=== PATIENT | male | born 1960 | race Caucasian/White ===

== ENCOUNTER 2022-07-20 23:09 | Emergency (ER) | payer OTHER, SELFPAY ==
[2022-07-20 23:11] VITALS: BP 147/75; PULSE 94; RESP 16; TEMP 38.2; O2SAT 99; BMI 30.8
[2022-07-20 23:50] VITALS: TEMP 36.9
--- NOTE | 2022-07-20 23:55 | EX.ED.DYSGE1 ---
HPI History of Present Illness Chief Complaint: Fever Narrative Narrative: 61-year-old male presenting with nausea and a fever. He did not actually know he had a fever until he arrived to the emergency room. He states this started this morning. He took some Tylenol earlier which relieved his symptoms. He states he ate some pizza rolls this evening. He started to feel nauseous again. This is not a typical of a meal for him. Patient denies chest pain, shortness of breath. He does admit to chills and body aches. He does not have any abdominal pain. PFSH PFSH Medical History no medical history Home Medications famotidine 20 mg tablet (Pepcid) 20 mg PO BID #14 tabs 07/20/22 [Rx Last Taken Unknown] ondansetron 4 mg disintegrating tablet 4 mg PO Q8H PRN nausea and vomiting #14 tabs 07/20/22 [Rx Last Taken Unknown] Allergy/AdvReac Type Severity Reaction Status Date / Time No Known Allergies Allergy Verified 07/20/22 23:10 Social History Smoking Status: Former smoker ROS ROS ED Constitutional Constitutional ED: Reports chills and subjective Eyes Eyes: Denies change in vision ENT ENT ED: Denies rhinorrhea or sore throat Cardiovascular Cardiovascular: Denies chest pain or palpitations Respiratory/Chest Respiratory/Chest: Denies cough or dyspnea Gastrointestinal Gastrointestinal: Reports nausea; Denies abdominal pain Genitourinary Genitourinary ED: Denies dysuria or hematuria Musculoskeletal Musculoskeletal: Reports myalgias; Denies arthralgias Integumentary Denies abscess or Abrasions Neurologic Neurologic: Denies headache(s) or paresthesias Psychiatric Psychiatric: Denies anxiety or depression EXAM Physical Exam Const Vital Signs: 07/20/22 23:11 07/20/22 23:48 07/20/22 23:50 Temperature 100.8 F H 98.4 F Temperature Source Temporal Oral Pulse Rate 94 Respiratory Rate 16 Respiratory Effort Normal Respiratory Pattern Normal Blood Pressure 147/75 H Blood Pressure Mean 99 Pulse Ox 99 Oxygen Delivery Method Room Air Positive well nourished General Appearance ED: NAD; Negative for pallor HEENT Reports moist mucous membranes Eyes PERRL and EOMs intact bilaterally Neck no lymphadenopathy Chest Wall inspection of chest normal and palpation of chest normal Resp normal respiratory effort and clear to auscultation bilaterally Auscultation: Negative for rales, rhonchi or wheezes Cardio regular rate and regular rhythm GI normal to inspection, nondistended, normoactive bowel sounds Extremity normal to inspection Neuro oriented x3 and CN's II-XII intact bilaterally Psych mental status grossly normal Skin no rashes or lesions noted and no wounds General Skin Exam: Negative for jaundice or pallor MDM MDM MDM Narrative Medical decision making narrative: Patient presenting with nausea. He has not been vomiting. He states he started feeling unwell earlier today. He did not know he had a fever. On arrival his temperature is 100.8 ?F. He does admit to body aches and chills. He does not have a cough, shortness of breath. No abdominal pain. Offered to test patient for COVID or influenza he declines. Will be treated symptomatically with Zofran and Tylenol. He will be discharged home with a prescription for Pepcid and Zofran and will alternate Tylenol and ibuprofen for pain. He is counseled drink plenty of fluids. Return precautions discussed. Impression: 1. Viral syndrome 2. Febrile illness 3. Nausea Lab Data Attestation: I reviewed the patient's lab results. Discharge Plan Triage Chief Complaint: Fever ED Provider: Anselmo London Dx/Rx/DC Orders Instructions: ED Viral Syndrome (Adult) Prescriptions: New ondansetron 4 mg tablet,disintegrating 4 mg PO Q8H PRN (Reason: nausea and vomiting) Qty: 14 0RF famotidine [Pepcid] 20 mg tablet 20 mg PO BID Qty: 14 0RF Primary Care Provider: NOT,DEFINED Referrals: NOT,DEFINED [Primary Care Provider] - Disposition Disposition: Home, Self Care
[2022-07-20] MEDS: Ondansetron ODT 4 MG Tablet PO (23:57)
[2022-07-20] MEDS: Acetaminophen 500 MG Tablet 1000 MG PO (23:57)
== END 2022-07-21 00:41 | disposition home or self-care (01) ==
LOC: ED 07-21 00:22
PROVIDERS: Emergency Provider Student in an Organized Health Care Education/Training Program; Visit Provider Student in an Organized Health Care Education/Training Program
DX: B34.9 Viral infection, unspecified (principal); R50.9 Fever, unspecified; R11.0 Nausea; Z87.891 Personal history of nicotine dependence
CPT/HCPCS: 99283

== ENCOUNTER 2022-07-23 12:26 | Emergency (ER) | payer OTHER, SELFPAY ==
[2022-07-23 12:26] VITALS: BP 167/79; PULSE 95; RESP 16; TEMP 36.3; O2SAT 99; BMI 30.8
--- NOTE | 2022-07-23 12:58 | ED.VIS.LOWEX ---
HPI <LISBET Colon - Last Filed: 07/23/22 20:33> History of Present Illness Chief Complaint: Wound Narrative Narrative: Patient presents with an erythemic, edematous, painful, and purulent wound on his R big toe. The redness and swelling extends over his entire R foot. Patient states he gets chronic big toe calluses on both feet and clipped the R callus off about a month ago. 2 days ago he noticed the area became red and swollen. Patient denies fever and chills and a history of diabetes mellitus. However, he has not been to his PCP in quite some time. Patient did present to the emergency department on 07/20/2022 for a fever and nausea. PFSH <LISBET Colon - Last Filed: 07/23/22 20:33> PFSH Medical History no medical history no medical history Home Medications famotidine 20 mg tablet (Pepcid) 20 mg PO BID #14 tabs 07/20/22 [Rx Last Taken Unknown] ondansetron 4 mg disintegrating tablet 4 mg PO Q8H PRN nausea and vomiting #14 tabs 07/20/22 [Rx Last Taken Unknown] cephalexin 500 mg capsule 500 mg PO Q6 #40 caps 07/23/22 [Rx Last Taken Unknown] sulfamethoxazole 400 mg-trimethoprim 80 mg tablet (Bactrim) 1 tab PO BID cellulitis 7 days #14 tabs 07/23/22 [Rx Last Taken Unknown] Allergy/AdvReac Type Severity Reaction Status Date / Time No Known Allergies Allergy Verified 07/23/22 12:28 Social History Smoking Status: Former smoker ROS <LISBET Colon - Last Filed: 07/23/22 20:33> ROS ED Constitutional Constitutional ED: Denies chills, fever(s) or sweats Eyes Eyes: Denies change in vision ENT ENT ED: Denies rhinorrhea or sore throat Cardiovascular Cardiovascular: Denies chest pain Respiratory/Chest Respiratory/Chest: Denies cough, dyspnea or dyspnea on exertion Gastrointestinal Gastrointestinal: Denies abdominal pain, constipation, diarrhea, nausea or vomiting Genitourinary Genitourinary ED: Denies dysuria Musculoskeletal Musculoskeletal: Denies arthralgias Integumentary Reports erythema and wounds EXAM <LISBET Colon - Last Filed: 07/23/22 20:33> Physical Exam Const Vital Signs: 07/23/22 12:26 Temperature 97.4 F L Temperature Source Temporal Pulse Rate 95 Respiratory Rate 16 Blood Pressure 167/79 H Blood Pressure Mean 108 Pulse Ox 99 Oxygen Delivery Method Room Air <Dr. Sadia Limon MD - Last Filed: 07/23/22 14:49> Physical Exam Const Vital Signs: 07/23/22 12:26 Temperature 97.4 F L Temperature Source Temporal Pulse Rate 95 Respiratory Rate 16 Blood Pressure 167/79 H Blood Pressure Mean 108 Pulse Ox 99 Oxygen Delivery Method Room Air MDM <LISBET Colon - Last Filed: 07/23/22 20:33> MDM MDM Narrative Medical decision making narrative: To rule out osteomyelitis in his right toe I ordered blood cultures, x-ray of the right foot, lactic acid, CBC, CMP, and culture of the wound. The x-ray did not show any osteomyelitis. We are waiting on blood cultures. His CMP did show a glucose of 355. We are referring him to an supervisor customer records division, and because he has no PCP we are referring him to one as well. He will be given Keflex and Bactrim to take at home. He has been instructed on how to keep wound clean and dry. He is stable and able to discharge home. He has been instructed to return if he has any new or worsening symptoms. Lab Data Attestation: I reviewed the patient's lab results. Labs: Laboratory Results - last 24 hr 07/23/22 07/23/22 07/23/22 13:15 13:15 13:15 WBC 10.4 RBC 4.73 Hgb 14.5 Hct 43.3 MCV 91.5 MCH 30.7 MCHC 33.5 RDW Std Deviation 42.2 RDW Coeff of Emmanuel 12.5 Plt Count 177 MPV 9.8 Immature Gran % (Auto) 0.600 Neut % (Auto) 80.7 H Lymph % (Auto) 9.5 L Chilton % (Auto) 8.4 Eos % (Auto) 0.5 Baso % (Auto) 0.3 Absolute Neuts (auto) 8.4 H Absolute Lymphs (auto) 0.99 Nucleated RBC % 0 Sodium 133 L Potassium 4.1 Chloride 99 Carbon Dioxide 28.0 Anion Gap 6 BUN 18 Creatinine 1.00 Estim Creat Clear Calc 79.54 Est GFR (MDRD) Af Amer 98 Est GFR (MDRD) Non-Af 81 BUN/Creatinine Ratio 18.0 Glucose 355 H Lactic Acid 1.4 Calcium 8.8 Total Bilirubin 0.60 AST 37 ALT 61 Alkaline Phosphatase 106 Total Protein 7.4 Albumin 2.9 L Globulin 4.5 H Albumin/Globulin Ratio 0.6 L Radiography Diagnostic Testing: Clinical Impression(s) from Imaging Studies Foot X-Ray 07/23/22 13:20 IMPRESSION: Soft tissue swelling overlying the great toe. No evidence of bony destruction. Electronically Signed: Lb Easley MD at 13:55 EDT , <Dr. Sadia Limon MD - Last Filed: 07/23/22 14:49> [facility] Lab Data Labs: Laboratory Results - last 24 hr 07/23/22 07/23/22 07/23/22 13:15 13:15 13:15 WBC 10.4 RBC 4.73 Hgb 14.5 Hct 43.3 MCV 91.5 MCH 30.7 MCHC 33.5 RDW Std Deviation 42.2 RDW Coeff of Emmanuel 12.5 Plt Count 177 MPV 9.8 Immature Gran % (Auto) 0.600 Neut % (Auto) 80.7 H Lymph % (Auto) 9.5 L Chilton % (Auto) 8.4 Eos % (Auto) 0.5 Baso % (Auto) 0.3 Absolute Neuts (auto) 8.4 H Absolute Lymphs (auto) 0.99 Nucleated RBC % 0 Sodium 133 L Potassium 4.1 Chloride 99 Carbon Dioxide 28.0 Anion Gap 6 BUN 18 Creatinine 1.00 Estim Creat Clear Calc 79.54 Est GFR (MDRD) Af Amer 98 Est GFR (MDRD) Non-Af 81 BUN/Creatinine Ratio 18.0 Glucose 355 H Lactic Acid 1.4 Calcium 8.8 Total Bilirubin 0.60 AST 37 ALT 61 Alkaline Phosphatase 106 Total Protein 7.4 Albumin 2.9 L Globulin 4.5 H Albumin/Globulin Ratio 0.6 L Radiography Diagnostic Testing: Clinical Impression(s) from Imaging Studies Foot X-Ray 07/23/22 13:20 IMPRESSION: Soft tissue swelling overlying the great toe. No evidence of bony destruction. Electronically Signed: Lb Easley MD at 13:55 EDT , Treatment and Re-Evaluation Narrative: Patient seen and evaluated with JEFFRY. I personally interviewed and examined the patient. I was involved in all aspects of patient's orders, interpretation of results, and treatment. Patient presents with redness and swelling to the right great toe. He reports getting frequent calluses to his feet that he will trim. He states over the past 2 days his right toe has become more swollen and red. He denies having fever or chills, although was noted to be seen in the emergency room 3 days ago with low-grade fever and a stomach bug. He does not follow with a primary care physician regularly. Patient sitting upright in bed no acute distress. He is nontoxic-appearing. Head and neck examination unremarkable. Heart is regular rate and rhythm. Lung sounds are clear. Abdomen is soft and nontender. Right lower extremity examination reveals edema and erythema to the right great toe. He has erythema onto the distal lower leg, however this appears more consistent with chronic venous skin changes. There is mild wound drainage over the great toe. CBC was normal white count. 80% neutrophils are noted. Chemistry studies reveal slight hyponatremia with a sodium of 131. His glucose is 355. Lactic acid is normal at 1.4. Right foot x-ray per my interpretation reveals no evidence of bony destruction. Radiology interpretation is reviewed and agrees. Given this, patient will be treated with Bactrim and Keflex and referred to podiatry for close follow-up. I also suspect that he is an untreated diabetic. He is referred to [facility] on no doc list to establish primary care. Return instructions are provided. Discharge Plan Triage Chief Complaint: Wound ED Midlevel Provider: Jenifer Shaikh ED Provider: Sadia Limon Dx/Rx/DC Orders Clinical Impression: Wound cellulitis Instructions: Diabetic Foot Press Injury Dc Prescriptions: New cephalexin 500 mg capsule 500 mg PO Q6 Qty: 40 0RF sulfamethoxazole-trimethoprim [Bactrim] 400-80 mg tablet 1 tab PO BID 7 Days Qty: 14 0RF No Action ondansetron 4 mg tablet,disintegrating 4 mg PO Q8H PRN (Reason: nausea and vomiting) Qty: 14 0RF famotidine [Pepcid] 20 mg tablet 20 mg PO BID Qty: 14 0RF Primary Care Provider: Care Physician,No Primary Referrals: Faiza Warren MD [Med Staff - Active Staff] - As soon as possible Adrian Parsons DPM [Med Staff - Active Staff] - As soon as possible Care Physician,No Primary [Primary Care Provider] - Activity Restrictions/Additional Instructions: Patient has been encouraged to follow-up with PCP we have set him up with along with the supervisor customer records division. He has been instructed to keep wound clean and dry. He has been instructed to return if he notices any new or worsening symptoms. Disposition Disposition: Home, Self Care
--- NOTE | 2022-07-23 13:20 | RAD_ITS ---
STUDY: X-RAY - RIGHT FOOT CLINICAL: Male, 61 years old. Wound R big toe TECHNIQUE: 3 view(s) of the foot. COMPARISON: None. FINDINGS: Normal talus, calcaneus, and tarsal bones. Normal visualized subtalar, talonavicular, calcaneocuboid, tarsal and tarsometatarsal articulations. Normal metatarsi. Normal metatarsophalangeal joint of the great toe. Normal tibial and fibular sesamoid bones. Normal interphalangeal joint of the great toe. Normal phalanges of the great toe. Normal second through fifth metatarsophalangeal joints. Normal interphalangeal joints and phalanges of the lesser toes. Soft tissue swelling overlying the great toe. RAD/Foot min 3 Views IMPRESSION: Soft tissue swelling overlying the great toe. No evidence of bony destruction. Electronically Signed: Lb Easley MD at 13:55 EDT ,
[2022-07-23 13:36] LABS: Absolute Lymphocyte Count 0.99 X10^3/uL (0.83-4.51); Absolute Neutrophil Count 8.4 X10^3/uL (2.0-7.7); Basophil# 0.03 X10^3/uL; Basophil% 0.3 % (0-1); Eosinophil# 0.05 X10^3/uL; Eosinophils% 0.5 % (0-5); Hematocrit 43.3 % (40-54); Hemoglobin 14.5 g/dL (13.0-16.5); Lymphocyte # 0.99 X10^3/ul (0.83-4.51); Lymphocyte % 9.5 % (19-41); Mean Corp Hgb Conc 33.5 g/dL (32-36); Mean Corpuscular Hgb 30.7 pg (27.0-32.0); Mean Corpuscular Volume 91.5 fL (80-94); Mean Platelet Vol. 9.8 fl (6.2-12.0); Monocyte# 0.88 X10^3/uL; Monocyte% 8.4 % (0-10); NRBC Flagged by Analyzer 0 % (0-5); Neutrophil # 8.41 X10^3/uL (2.7-7.7); Neutrophil % 80.7 % (47-70); Platelet Count 177 K/mm3 (150-450); RBC Distribution Width CV 12.5 % (11.6-14.6); RBC Distribution Width SD 42.2 fl (35.1-43.9); Red Blood Count 4.73 M/mm3 (4.6-6.2); White Blood Count 10.4 K/mm3 (4.4-11.0)
[2022-07-23 13:52] LABS: ALB/GLOB Ratio 0.6 RATIO (0.9-2.4); AST(SGOT) 37 U/L (15-37); Alanine Aminotransfer ALT/SGPT 61 U/L (16-61); Albumin, Serum 2.9 g/dL (3.2-5.0); Alkaline Phosphatase 106 U/L (45-117); Anion Gap 6 (5-15); BUN 18 mg/dL (7-18); Calcium,Total 8.8 mg/dL (8.5-10.1); Chloride 99 mmol/L (98-107); EST Glomerular Filtration Rate 81 mL/min (>60); Est Glom Filt Rate - Afr Amer 98 mL/min (>60); Estimated Creatinine Clearance 79.54 ml/min; Globulin 4.5 g/dL (2.2-4.2); Glucose 355 mg/dL (74-106); Potassium 4.1 mmol/L (3.5-5.1); Protein, Total 7.4 g/dL (6.4-8.2); Sodium Level 133 mmol/L (136-145)
[2022-07-23 14:09] LABS: Lactic Acid 1.4 mmol/L (0.4-1.9)
== END 2022-07-23 14:49 | disposition home or self-care (01) ==
PROVIDERS: Physician Assistant; Emergency Provider Emergency Medicine; Visit Provider Emergency Medicine
DX: L03.031 Cellulitis of right toe (principal); Z87.891 Personal history of nicotine dependence
CPT/HCPCS: 73630; 80053; 83605; 85025; 87040; 87070; 87077; 87186; 87205; 99283; A4216

== ENCOUNTER 2022-07-27 16:20 | Inpatient (IN) | payer OTHER, SELFPAY ==
[2022-07-27 16:29] VITALS: BMI 28.2
[2022-07-27 16:47] VITALS: BP 148/73; PULSE 82; RESP 18; TEMP 36.6; O2SAT 99
[2022-07-27] MEDS: 0.9% Saline Lock 10 ML Syringe IV (17:12)
--- NOTE | 2022-07-27 17:18 | PCM.HP.STD ---
HPI - General General Date of Admission: 07/27/22 HPI Narrative ALLEY ZHONG, is a 61 M who presented to my clinic with new onset right foot infection in setting of undiagnosed diabetes poorly controlled. Patient had recently been seen in the emergency department on 07/24/2022. Patient noted increased swelling redness to his right big toe at that time with some fever chills and nausea. Patient was evaluated emergency department and discharged on oral antibiotics. Patient presented to our office today with worsening infection to his right big toe. Increased drainage to site. Increased pain. Increased malodor. Patient was noted to have blood sugar greater than 350 in the emergency room, patient has no medical treatment for diabetes at this time and does not routinely follow with a medical doctor. Patient was referred to primary care physician as an outpatient, but per patient they were unable to get him in. Patient notes that this issue started because he had a callus to the site which she had picked at and attempted to remove. No other complaints. [facility]LY [facility] Medical History H/O pneumothorax Home Medications ondansetron 4 mg disintegrating tablet 4 mg PO Q8H PRN nausea and vomiting #14 tabs 07/20/22 [Rx Last Taken Unknown] cephalexin 500 mg capsule 500 mg PO Q6 #40 caps 07/23/22 [Rx Last Taken Unknown] sulfamethoxazole 400 mg-trimethoprim 80 mg tablet (Bactrim) 1 tab PO BID cellulitis 7 days #14 tabs 07/23/22 [Rx Last Taken Unknown] Allergy/AdvReac Type Severity Reaction Status Date / Time No Known Allergies Allergy Verified 07/23/22 12:28 Social History Smoking Status: Former smoker ROS Constitutional Constitutional: Reports chills and lethargy; Denies difficulty sleeping Eyes Eyes: Denies acute decrease in peripheral vision, change in vision or double vision ENT HEENT: Denies bleeding gums, change in voice or epistaxis Cardiovascular Cardiovascular: Denies abdominal edema, chest pain at rest or dyspnea Respiratory/Chest Respiratory/Chest: Denies change in phlegm color, dyspnea or inability to speak Gastrointestinal Gastrointestinal: Denies abdominal pain, chewing difficulty or diarrhea Genitourinary Genitourinary: Denies anuria, burning urination or difficulty with ejaculations Musculoskeletal Musculoskeletal: Denies back pain, deformity or limited range of motion Vital Signs Vital Signs Vital Signs: 07/27/22 16:47 Temperature 97.9 F Temperature Source Oral Pulse Rate 82 Respiratory Rate 18 Blood Pressure 148/73 H Blood Pressure Mean 98 Blood Pressure Source Monitor Blood Pressure Position Semi-Fowlers Blood Pressure Location Left Arm Pulse Ox 99 Oxygen Delivery Method Room Air Weight Weight: 86.7 kg Body Mass Index (BMI) 28.2 Physical Exam Narrative Patient alert oriented person place time. Vascular: Dorsalis pedis posterior tibial pulses palpable 2 out of 4 to bilateral lower extremity. Digital hair growth noted. Diffuse erythema warmth and edema to the right big toe extending into the anterior ankle. Neurologic: Light touch protective sensation diminished bilateral feet. Dermatologic: Diffuse necrotic ulcer noted to the right distal medial hallucal IPJ extending into the dorsal hallux. Predebridement this wound was a thick purulent bolus. Postdebridement the wound demonstrated a full-thickness ulceration that extended down to the level of the tendon specifically extensor hallucis longus tendon. Upon debridement there is noted to be a residual necrotic base with purulent, black drainage coming from the site. There is no to be fluctuance along the dorsal hallux extending along the extensor hallucis longus tendon toward the anterior ankle. There is focal increase in warmth as well as redness and pain to the site. Musculoskeletal: Hallux limitus deformity noted to the right lower extremity. Muscular strength full to bilateral lower extremity compartments. No other issues per Assessment & Plan Assessment/Plan (1) Non-pressure chronic ulcer of other part of right foot with necrosis of muscle: PLAN: Exam performed. Radiographs taken in the office, negative for bony erosion or periostitis suggestive of osteomyelitis. Due to depth of wound severity of the infection I have ordered an MRI. Patient will likely require operative decompression of deep abscess. The wound was excisionally debrided down to including the level of muscle and the office today after obtaining oral consent using a combination of pickups and a #15 blade. All nonviable tissue was removed. base demonstrated residual necrosis. Significant seropurulent drainage noted. Hemostasis obtained with light compression. No anesthesia due to neuropathy. Predebridement the wound was a purulent bolus postdebridement there was a full-thickness wound measuring 1.5 x 1.5 x 1.0 cm. Patient tolerated procedure well. IV vancomycin and Zosyn ordered per Hospitalist consulted for diabetes management. Infectious disease ordered. L 4361 Cam walking boot dispensed patient in clinic, patient remain heel weightbearing to the right lower extremity. We will plan for surgical management sometime this week pending MRI completion. Dietitian consulted for nutritional discussion regarding new onset diabetes We will follow patient closely. (2) Type 2 diabetes mellitus with diabetic polyneuropathy: (3) Abscess of right foot:
[2022-07-27 17:51] LABS: Hematocrit 41.5 % (40-54); Hemoglobin 14.3 g/dL (13.0-16.5); Mean Corp Hgb Conc 34.5 g/dL (32-36); Mean Corpuscular Hgb 30.5 pg (27.0-32.0); Mean Corpuscular Volume 88.5 fL (80-94); Mean Platelet Vol. 9.4 fl (6.2-12.0); POSITIVE COUNT YES; POSITIVE MORPHOLOGY YES; Platelet Count 366 K/mm3 (150-450); RBC Distribution Width CV 12.4 % (11.6-14.6); RBC Distribution Width SD 39.7 fl (35.1-43.9); Red Blood Count 4.69 M/mm3 (4.6-6.2); White Blood Count 16.1 K/mm3 (4.4-11.0)
[2022-07-27 17:51] LABS: Bedside Glucose 257 mg/dL (74-106)
--- NOTE | 2022-07-27 18:03 | PCM.CONS.GEN ---
Assessment & Plan Assessment/Plan (1) Type 2 diabetes mellitus with diabetic polyneuropathy: PLAN: Previously undiagnosed but it likely has been a chronic issue for some time. Agree with checking an A1c. Plan: Sliding scale insulin Start Lantus 10 units nightly tonight. It is unclear, at this time, if he will require long-term insulin upon discharge, but I suspect he may. Patient and his significant other have been made aware of this. Nutrition consult for diabetes recommendations. Patient will require glucometer with testing strips and lancets upon discharge whether or not he is on insulin upon discharge. Patient, during my encounter, did not seem motivated to get better and understands the importance of follow-up with a primary care doctor. Patient segment other had a lot of questions about potential interactions with insulin and his other medications. Explained to she and the patient that the likelihood of any potential interaction with his medications and insulin is very low. (2) Abscess of right foot: PLAN: Status postdebridement On vancomycin and Zosyn MRI has been ordered Infectious disease has been consulted Follow-up cultures PLAN: Plan VTE prophylaxis with subcu heparin Thank you for the consult. The hospitalist service will continue to follow along during this patient's hospitalization. HPI Consult Data Date of Consult: 07/27/22 HPI Narrative Reason for Consultation: Consult requested by Dr. Cole for DM mgmt. HPI Narrative: ALLEY ZHONG, is a 61 M who presents with right foot infection at the podiatry office today. I did see in the emergency room on the fifth for the same but had been on antibiotics but noticed increased swelling and redness to his right great toe with associated chills and nausea. Patient was started to have drainage and increased pain small. Patient was noted to have a blood sugar greater than 350 in the emergency room the patient had no prior history of diabetes, though, patient does not have a primary care physician. Patient had an x-ray at the office that did not show any bony erosions or periostitis. Patient did have debridement down to the level of the muscle and nonviable tissue was removed. Significant seropurulent drainage was noted. Patient did not require any anesthesia due to his neuropathy. Patient blood sugars have continued to be elevated for which the hospital service was consulted for previously undiagnosed diabetes. FORMERLY [facility] Medical History (Updated 07/27/22 @ 18:[address] Uli Jopperi, DO) H/O pneumothorax Type 2 diabetes mellitus with diabetic polyneuropathy Home Medications ondansetron 4 mg disintegrating tablet 4 mg PO Q8H PRN nausea and vomiting #14 tabs 07/20/22 [Rx Last Taken Unknown] cephalexin 500 mg capsule 500 mg PO Q6 #40 caps 07/23/22 [Rx Last Taken Unknown] sulfamethoxazole 400 mg-trimethoprim 80 mg tablet (Bactrim) 1 tab PO BID cellulitis 7 days #14 tabs 07/23/22 [Rx Last Taken Unknown] Allergy/AdvReac Type Severity Reaction Status Date / Time No Known Allergies Allergy Verified 07/23/22 12:28 Family History (Updated 07/27/22 @ 18:[address] Uli Malik, ) Father Diabetes Social History (Updated 07/27/22 @ 18:[address] Uli Malik, ) Smoking Status: Former smoker alcohol intake: former substance use type: does not use ROS ROS Narrative Neuropathy in his feet. Chills. All review of systems were negative except as mentioned above in the history of present illness and the other review of systems. Physical Exam Const alert and no apparent distress General Appearance: cooperative HEENT normocephalic Neck no lymphadenopathy Neck Narrative: No thyromegaly Resp normal respiratory effort, no retractions, no use of accessory muscles and clear to auscultation bilaterally Cardio regular rate, regular rhythm, S1 normal heart sound and S2 normal heart sound GI normal to inspection, nondistended, normoactive bowel sounds, soft to palpation, non-tender, non-distended and hepatosplenomegaly Extremity Extremity Narrative: Right foot and ankle bandaged, did not remove. Neuro Sensorium / Orientation: awake and alert Lab / Micro Data Result Diagrams: 07/27/22 15:35 07/27/22 15:35 Labs: Laboratory Results - last 24 hr 07/27/22 17:33: POC Glucose 257 H Charges/Coding Visit Charges Inpatient E&M: 24193 Init Hosp L2
[2022-07-27 18:15] LABS: Differential Indicated MANUAL DIFF
[2022-07-27 18:20] LABS: Erythrocyte Sedimentation Rate 87 mm/hr (0-20)
[2022-07-27 18:29] LABS: ALB/GLOB Ratio 0.5 RATIO (0.9-2.4); AST(SGOT) 13 U/L (15-37); Alanine Aminotransfer ALT/SGPT 39 U/L (16-61); Albumin, Serum 2.8 g/dL (3.2-5.0); Alkaline Phosphatase 142 U/L (45-117); Anion Gap 8 (5-15); BUN 14 mg/dL (7-18); BUN/Creat Ratio 15.3 RATIO (10-20); Calcium,Total 9.4 mg/dL (8.5-10.1); Chloride 99 mmol/L (98-107); Creatinine, Serum 0.91 mg/dL (0.70-1.30); EST Glomerular Filtration Rate 90 mL/min (>60); Est Glom Filt Rate - Afr Amer 109 mL/min (>60); Globulin 5.4 g/dL (2.2-4.2); Glucose 293 mg/dL (74-106); Potassium 4.8 mmol/L (3.5-5.1); Protein, Total 8.2 g/dL (6.4-8.2); Sodium Level 134 mmol/L (136-145)
--- NOTE | 2022-07-27 18:38 | PHA.PHARE_ITS ---
Consult Pharmacy has been consulted to manage selected antiobiotic: Vancomycin Type of Consult: New start Suspected Infection: Skin/Soft tissue Labs: Sodium 134 mmol/L (136-145) L 07/27/22 15:35 Potassium 4.8 mmol/L (3.5-5.1) 07/27/22 15:35 Chloride 99 mmol/L (98-107) 07/27/22 15:35 Carbon Dioxide 27.0 mmol/L (21.0-32.0) 07/27/22 15:35 Anion Gap 8 (5-15) 07/27/22 15:35 BUN 14 mg/dL (7-18) 07/27/22 15:35 Creatinine 0.91 mg/dL (0.70-1.30) 07/27/22 15:35 Est GFR (MDRD) Af Amer 109 mL/min (>60) 07/27/22 15:35 Est GFR (MDRD) Non-Af 90 mL/min (>60) 07/27/22 15:35 BUN/Creatinine Ratio 15.3 RATIO (10-20) 07/27/22 15:35 Glucose 293 mg/dL (74-106) H 07/27/22 15:35 Weight used for dosin.7 kg Estimated Creatinine Clearance: 87ML/MIN Goal Trough: 15-20 mcg/mL Pharmacy Plan for Drug Dosing: Give initial standard (15mg/kg) dose of 1250mg IV x1, then continue with 1500mg IV q12h per [facility] dosing protocol. Will order a trough to be drawn before the 4th total dose. Pharmacy Service will continue to monitor and adjust dosing as required. Follow-Up Labs: Trough Vancomycin Labs to be done on [date and time ordered]: 07/29/22 05:30
[2022-07-27 18:48] LABS: Hemoglobin A1c 11.1 % (3.8-5.6)
[2022-07-27 19:07] LABS: Eosinophil 1 % (0-5); Lymphocyte 9 % (19-41); Metamyelocyte 2 % (0-1); Monocyte 14 % (0-10); Myelocyte 1 % (0-0); Neutrophil-Band 3 % (0-5); Neutrophil-Segmented 70 % (47-70); Total Cells Counted 100 (MANUAL DIFF)
[2022-07-27 19:09] LABS: Absolute Neutrophil Count 11.8 X10^3/uL (2.0-7.7)
[2022-07-27 19:10] LABS: Absolute Lymphocyte Count 1.45 X10^3/uL (0.83-4.51)
[2022-07-27 19:11] LABS: Platelet Estimate ADEQUATE (ADEQ)
[2022-07-27 19:12] LABS: Anisocytosis RARE; Macrocytosis RARE; Red Cell Morphology N CHROM NORMAL (NORM C&C)
[2022-07-27 19:32] VITALS: BP 162/78; PULSE 89; RESP 18; TEMP 36.9; O2SAT 95
[2022-07-27] MEDS: Acetaminophen 500 MG Tablet PO (19:47)
[2022-07-27] MEDS: Heparin Injection (Vial) 5,000 UNIT/ML VIAL 5000 UNIT SC (21:34)
[2022-07-27] MEDS: Insulin Glargine-YFGN 100 UNIT/ML Pen 10 UNIT SC (21:35)
[2022-07-27 22:00] LABS: Bedside Glucose 325 mg/dL (74-106)
[2022-07-28] VITALS (9 sets, daily range): BP systolic 144–169; BP diastolic 65–84; PULSE 78–91; RESP 16–18; TEMP 36.5–37.1; O2SAT 95–99
[2022-07-28] MEDS: Acetaminophen 500 MG Tablet PO ×3 (03:08→17:28)
[2022-07-28] MEDS: Heparin Injection (Vial) 5,000 UNIT/ML VIAL 5000 UNIT SC ×3 (05:40→22:15)
[2022-07-28] MEDS: Insulin Lispro 100 UNIT/ML INSULN.PEN SC ×3 (06:22→17:23)
[2022-07-28 06:45] LABS: Bedside Glucose 213 mg/dL (74-106)
[2022-07-28] MEDS: oxyCODONE 5 MG Tablet PO ×2 (07:25→13:37)
[2022-07-28] MEDS: 0.9% Saline Lock 10 ML Syringe IV ×2 (09:30→12:36)
--- NOTE | 2022-07-28 09:30 | RAD_ITS ---
STUDY: X-RAY - ORBITS REASON FOR EXAM: Male, 61 years old. HX METAL TO EYE,PRE MRI TECHNIQUE: 2 view(s) of the orbits were obtained. COMPARISON: None. FINDINGS: Normal bilateral orbits without a metallic orbital foreign body. Normal visualized facial bones. Mucosal thickening along the lateral aspect of the left maxillary sinus. The soft tissue structures are unremarkable. RAD/Orbits for Foreign Body IMPRESSION: No demonstrated metallic orbital foreign body. The patient is cleared for an MRI examination. Electronically Signed: Lb Easley MD at 9:49 EST ,
--- NOTE | 2022-07-28 09:58 | MRI_ITS ---
STUDY: MRI RIGHT FOREFOOT WITHOUT CONTRAST REASON FOR EXAM: Male, 61 years old. Right foot infection. TECHNIQUE: Standardized fat and water weighted pulse sequences were obtained in all 3 orthogonal planes. COMPARISON: X-rays of the right foot dated July 23, 2022. FINDINGS: Moderate arthrosis of the MTP and IP joints with hammertoe deformities. Normal first through fourth intermetatarsal spaces. Normal flexor and extensor tendons of the second through fifth toes. Normal visualized metatarsi. Normal intrinsic muscles of the forefoot. Superficial soft tissue ulceration adjacent to the proximal aspect of the proximal phalanx of the fifth digit extending approximately 5 mm into the soft tissues adjacent to the proximal phalanx of the first metatarsal. Extension of the high signal intensity on the plantar surface of the foot beneath the first flexor tendon. Extension of the high signal intensity dorsally to within approximately 3 mm of the cortex of the proximal and medial aspect of the first proximal phalanx. These areas of extension may represent small soft tissue abscesses (coronal series 7 images 13-18, axial series 6 images 15-24). MRI/Lower Ext/No Jt/w/o IMPRESSION: Moderate arthrosis of the MTP and IP joints with hammertoe deformities. Superficial soft tissue ulceration with extensions to the dorsal and plantar surface of the soft tissues medial to the proximal phalanx of the first toe. Probable small superficial abscess disease dorsally and on the plantar surface of the foot as described. No bone erosion or high signal intensity within any of the visualized osseous structures to suggest osteomyelitis. Electronically Signed: Skyler Boyce, at 11:03 EST ,
--- NOTE | 2022-07-28 12:38 | PCM.PROGNOTE ---
Subjective Subjective 61-year-old male seen bedside today with abscess right foot. Denies constitutional's. Pain well controlled. No other complaints. Objective Data Objective Data Vital Signs: Vital Signs Temp Pulse Resp BP Pulse Ox O2 Del Method 98.2 F 89 16 155/77 H 97 Room Air 07/28/22 09:15 07/28/22 09:15 07/28/22 09:15 07/28/22 09:15 07/28/22 09:15 07/28/22 09:18 Oxygen Delivery Method Room Air Weight: 86.7 kg Body Mass Index (BMI) 28.2 Intake & Output: Intake and Output for Last 24 Hours 07/26/22 07/27/22 07/28/22 23:59 23:59 23:59 Intake Total 425 / 1225 2856.5 / 2856.5 Output Total 5 / 2075 Balance 425 / 400 781.5 / 781.5 Lab / Micro Data Result Diagrams: 07/27/22 15:35 07/27/22 15:35 Labs: Laboratory Results - last 24 hr 07/27/22 15:35: ESR 87 H 07/27/22 15:35: C-React Prot Ext Range 91.20 H 07/27/22 15:35: Hemoglobin A1c 11.1 H 07/27/22 15:35: WBC 16.1 H, RBC 4.69, Hgb 14.3, Hct 41.5, MCV 88.5, MCH 30.5, MCHC 34.5, RDW Std Deviation 39.7, RDW Coeff of Emmanuel 12.4, Plt Count 366, MPV 9.4, Neut % (Auto) Not Reportable, Absolute Neuts (auto) 11.8 H, Absolute Lymphs (auto) 1.45, Total Counted 100, Neutrophils % (Manual) 70, Band Neutrophils % 3, Lymphocytes % (Manual) 9 L, Monocytes % (Manual) 14 H, Eosinophils % (Manual) 1, Metamyelocytes % 2 H, Myelocytes % 1 H, Diff Path Review May foll, Platelet Estimate ADEQUATE, RBC Morphology N CHROM, Anisocytosis RARE, Macrocytosis RARE 07/27/22 15:35: Sodium 134 L, Potassium 4.8, Chloride 99, Carbon Dioxide 27.0, Anion Gap 8, BUN 14, Creatinine 0.91, Estim Creat Clear Calc 87.40, Est GFR (MDRD) Af Amer 109, Est GFR (MDRD) Non-Af 90, BUN/Creatinine Ratio 15.3, Glucose 293 H, Calcium 9.4, Total Bilirubin 0.50, AST 13 L, ALT 39, Alkaline Phosphatase 142 H, Total Protein 8.2, Albumin 2.8 L, Globulin 5.4 H, Albumin/Globulin Ratio 0.5 L 07/27/22 17:33: POC Glucose 257 H 07/27/22 21:32: POC Glucose 325 H 07/28/22 06:19: POC Glucose 213 H Micro: Microbiology 07/27/22 15:30 Wound - Right Foot Gram Stain - Final 07/27/22 15:30 Wound - Right Foot Wound Culture - Preliminary Alpha hemolytic organism Radiography Diagnostic Testing: Radiology Impression Orbit X-Ray 07/28/22 09:30 IMPRESSION: No demonstrated metallic orbital foreign body. The patient is cleared for an MRI examination. Electronically Signed: Lb Easley MD at 9:49 EST , Lower Extremity MRI 07/28/22 09:58 IMPRESSION: Moderate arthrosis of the MTP and IP joints with hammertoe deformities. Superficial soft tissue ulceration with extensions to the dorsal and plantar surface of the soft tissues medial to the proximal phalanx of the first toe. Probable small superficial abscess disease dorsally and on the plantar surface of the foot as described. No bone erosion or high signal intensity within any of the visualized osseous structures to suggest osteomyelitis. Electronically Signed: Skyler Boyce, at 11:03 EST , Physical Exam Narrative Patient alert oriented person place time. Vascular: Dorsalis pedis posterior tibial pulses palpable 2 out of 4 to bilateral lower extremity. Digital hair growth noted. Diffuse erythema warmth and edema to the right big toe extending into the anterior ankle. Neurologic: Light touch protective sensation diminished bilateral feet. Dermatologic: Diffuse necrotic ulcer noted to the right distal medial hallucal IPJ extending into the dorsal hallux. Full-thickness wound noted to plantar hallucal IPJ on the right side. This wound demonstrates an abscess along the dorsal aspect of the great toe as well as the plantar aspect of the toe Musculoskeletal: Hallux limitus deformity noted to the right lower extremity. Muscular strength full to bilateral lower extremity compartments. No other issues per Assessment & Plan Assessment/Plan (1) Non-pressure chronic ulcer of other part of right foot with necrosis of muscle: PLAN: Exam performed. Personal review of MRI demonstrates abscess of the dorsal and plantar great toe on the right lower extremity. Planning for incision and drainage of abscess or Tuesday of this week. Wound redressed per wound care. IV vancomycin and Zosyn ordered per Hospitalist consulted for diabetes management. Infectious disease ordered. Patient can heel weight-bear in Cam walking boot. Dietitian consulted for nutritional discussion regarding new onset diabetes We will follow patient closely. (2) Type 2 diabetes mellitus with diabetic polyneuropathy: (3) Abscess of right foot:
--- NOTE | 2022-07-28 12:43 | WOUNDNOTE ---
wound photo: right foot
--- NOTE | 2022-07-28 12:44 | WOUNDNOTE ---
wound photo: right foot
--- NOTE | 2022-07-28 13:48 | PCM.CONS.GEN ---
Assessment & Plan Assessment/Plan (1) Type 2 diabetes mellitus with diabetic polyneuropathy: (2) Abscess of right foot: PLAN: MRI showed no osteo. Wound cx with mssa, alpha strep, GPR. Cont vanc/zosyn, surgery planned. Will follow, thank you HPI Consult Data Date of Consult: 07/28/22 HPI Narrative Reason for Consultation: foot infection HPI Narrative: ALLEY ZHONG, is a 61 M who presented with new dx uncontrolled DM, several weeks R foot pain, ulceration, redness, drainage. Some chills. Came to ED, seen by podiatry, admitted, on vanc/zosyn. Feeling a little better, OR planned. Full ROS performed and neg except as noted above. [facility] Medical History H/O pneumothorax Type 2 diabetes mellitus with diabetic polyneuropathy Home Medications ondansetron 4 mg disintegrating tablet 4 mg PO Q8H PRN nausea and vomiting #14 tabs 07/20/22 [Rx Last Taken Unknown] cephalexin 500 mg capsule 500 mg PO Q6 #40 caps 07/23/22 [Rx Last Taken Unknown] sulfamethoxazole 400 mg-trimethoprim 80 mg tablet (Bactrim) 1 tab PO BID cellulitis 7 days #14 tabs 07/23/22 [Rx Last Taken Unknown] Allergy/AdvReac Type Severity Reaction Status Date / Time No Known Allergies Allergy Verified 07/23/22 12:28 Family History (Updated 07/27/22 @ 18:[address] Uli Malik DO) Father Diabetes Social History (Updated 07/27/22 @ 18:[address] Uli Malik DO) Smoking Status: Former smoker alcohol intake: former substance use type: does not use Physical Exam Const alert, oriented x3 and no apparent distress General Appearance: cooperative HEENT normocephalic and head/scalp atraumatic Eyes PERRL and EOMs intact bilaterally Neck supple and No nodes Resp normal air movement and clear to auscultation bilaterally Cardio regular rate and regular rhythm GI soft to palpation, non-tender and non-distended Extremity General Extremity: edema Skin Skin Narrative: Reviewed photos of foot Neuro CN's II-XII intact bilaterally Lab / Micro Data Attestation: I reviewed the patient's lab results. Result Diagrams: 07/27/22 15:35 07/27/22 15:35 Labs: Laboratory Results - last 24 hr 07/27/22 15:35: ESR 87 H 07/27/22 15:35: C-React Prot Ext Range 91.20 H 07/27/22 15:35: Hemoglobin A1c 11.1 H 07/27/22 15:35: WBC 16.1 H, RBC 4.69, Hgb 14.3, Hct 41.5, MCV 88.5, MCH 30.5, MCHC 34.5, RDW Std Deviation 39.7, RDW Coeff of Emmanuel 12.4, Plt Count 366, MPV 9.4, Neut % (Auto) Not Reportable, Absolute Neuts (auto) 11.8 H, Absolute Lymphs (auto) 1.45, Total Counted 100, Neutrophils % (Manual) 70, Band Neutrophils % 3, Lymphocytes % (Manual) 9 L, Monocytes % (Manual) 14 H, Eosinophils % (Manual) 1, Metamyelocytes % 2 H, Myelocytes % 1 H, Diff Path Review May foll, Platelet Estimate ADEQUATE, RBC Morphology N CHROM, Anisocytosis RARE, Macrocytosis RARE 07/27/22 15:35: Sodium 134 L, Potassium 4.8, Chloride 99, Carbon Dioxide 27.0, Anion Gap 8, BUN 14, Creatinine 0.91, Estim Creat Clear Calc 87.40, Est GFR (MDRD) Af Amer 109, Est GFR (MDRD) Non-Af 90, BUN/Creatinine Ratio 15.3, Glucose 293 H, Calcium 9.4, Total Bilirubin 0.50, AST 13 L, ALT 39, Alkaline Phosphatase 142 H, Total Protein 8.2, Albumin 2.8 L, Globulin 5.4 H, Albumin/Globulin Ratio 0.5 L 07/27/22 17:33: POC Glucose 257 H 07/27/22 21:32: POC Glucose 325 H 07/28/22 06:19: POC Glucose 213 H Micro: Microbiology 07/27/22 15:30 Wound - Right Foot Gram Stain - Final 07/27/22 15:30 Wound - Right Foot Wound Culture - Preliminary Alpha hemolytic organism Radiology Impression Orbit X-Ray 07/28/22 09:30 IMPRESSION: No demonstrated metallic orbital foreign body. The patient is cleared for an MRI examination. Electronically Signed: Lb Easley MD at 9:49 EST , Lower Extremity MRI 07/28/22 09:58 IMPRESSION: Moderate arthrosis of the MTP and IP joints with hammertoe deformities. Superficial soft tissue ulceration with extensions to the dorsal and plantar surface of the soft tissues medial to the proximal phalanx of the first toe. Probable small superficial abscess disease dorsally and on the plantar surface of the foot as described. No bone erosion or high signal intensity within any of the visualized osseous structures to suggest osteomyelitis. Electronically Signed: Skyler Boyce, at 11:03 EST ,
--- NOTE | 2022-07-28 15:45 | CASEMGMT ---
RN CM POULTRY TRIMMER CM to room to meet with patient for initial transition planning/care coordination assessment. RN CM introduced self and role at [facility].? Pt voices understanding and consents to assessment at this time.? Pt resting in bed in no distress at this time.? at bedside. Pt is A/O at this time and answers all questions appropriately.?? Care providers, pharmacy, and demographics verified/updated at this time. PCP:No PCP. Given list of local PCP's and educated on importance of getting established w/PCP. Specialists: Dr Cole-podiatry Preferred Pharmacy: [facility] Retail Insurance: [employer] Prescription Benefit:?Yes Living Will/HPOA:?States does not have LW or HCPOA .? Interested in more information but states does not want to talk with SW at this time to complete paperwork.? Provided information on advanced directives and given Social Service rac card with number to call if chooses in the future to utilize [facility] social work for advanced directive completion. LNOK:, Fatoumata. Living Arrangements: Lives w/ in one-story home w/3-4 steps to enter. Independent w/ADL's. and pt share home mgmt tasks. Transportation:?Pt and both drive. DME: ?States has the following DME:?[employer] boot. Pt does not have a glucometer. Pt and made aware a script for a glucometer will be provided and they can continuous pickling line pickler at a pharmacy of choice. Pt states no need for further DME at this time.? HHC/SNF: No hx of either. Pt is a new diabetic. They were provided w/info on Diabetic Clinic, circular ripsaw operator has been consulted and to meet w/pt and , and discussed Pt Link w/pt and . They are interested in Pt Link. Order placed for Consult. Nursing also to provide diabetic and insulin admin education. Pt wishes to return home and states has no concerns with going home at time of discharge.? CM to follow for any further discharge planning/needs.? Pt and voice no further concerns/needs at this time.? Advised them to ask for CM if any further questions/concerns/needs arise.? Voices understanding. PLAN:??Home w/Pt link. Senior Advocate to meet w/pt and for education Nursing to provide diabetic and insulin teaching. Pt will need script for glucometer. Lilliana BAERN RN CM
[2022-07-28 16:56] LABS: Bedside Glucose 242 mg/dL (74-106)
[2022-07-28] MEDS: Juven (unflavored) Packet 1 PACKET PO (17:23)
--- NOTE | 2022-07-28 18:17 | PCM.PN.HOSP ---
Subjective Subjective Patient was seen and examined today, blood sugars are still not entirely under control, I elected to raise the patient's basal insulin tonight to 20 units nightly. I talked with the patient's who was in the room during the time my examination, I have ordered a lipid profile for tomorrow morning, patient will also need a UA performed to check for protein. Patient does not have a family physician, I told him he would need to follow-up with one after his hospitalization. Patient is scheduled to have surgery on his right great toe this Tuesday according to podiatry. Objective Data Objective Data Vital Signs: Vital Signs Temp Pulse Resp BP Pulse Ox O2 Del Method 98.7 F 84 18 144/65 H 96 Room Air 07/28/22 17:18 07/28/22 17:18 07/28/22 17:18 07/28/22 17:18 07/28/22 17:18 07/28/22 17:18 Oxygen Delivery Method Room Air Weight: 86.7 kg Body Mass Index (BMI) 28.2 Intake & Output: Intake and Output for Last 24 Hours 07/26/22 07/27/22 07/28/22 23:59 23:59 23:59 Intake Total 425 / 1225 3956.5 / 3956.5 Output Total 3075 / 3075 Balance 425 / 400 881.5 / 881.5 Lab / Micro Data Result Diagrams: 07/27/22 15:35 07/27/22 15:35 Labs: Laboratory Results - last 24 hr 07/27/22 15:35: ESR 87 H 07/27/22 15:35: C-React Prot Ext Range 91.20 H 07/27/22 15:35: Hemoglobin A1c 11.1 H 07/27/22 15:35: Absolute Neuts (auto) 11.8 H, Absolute Lymphs (auto) 1.45, Total Counted 100, Neutrophils % (Manual) 70, Band Neutrophils % 3, Lymphocytes % (Manual) 9 L, Monocytes % (Manual) 14 H, Eosinophils % (Manual) 1, Metamyelocytes % 2 H, Myelocytes % 1 H, Diff Path Review January, Platelet Estimate ADEQUATE, RBC Morphology N CHROM, Anisocytosis RARE, Macrocytosis RARE 07/27/22 15:35: Sodium 134 L, Potassium 4.8, Chloride 99, Carbon Dioxide 27.0, Anion Gap 8, BUN 14, Creatinine 0.91, Estim Creat Clear Calc 87.40, Est GFR (MDRD) Af Amer 109, Est GFR (MDRD) Non-Af 90, BUN/Creatinine Ratio 15.3, Glucose 293 H, Calcium 9.4, Total Bilirubin 0.50, AST 13 L, ALT 39, Alkaline Phosphatase 142 H, Total Protein 8.2, Albumin 2.8 L, Globulin 5.4 H, Albumin/Globulin Ratio 0.5 L 07/27/22 21:32: POC Glucose 325 H 07/28/22 06:19: POC Glucose 213 H 07/28/22 16:37: POC Glucose 242 H Micro: Microbiology 07/27/22 15:30 Wound - Right Foot Gram Stain - Final 07/27/22 15:30 Wound - Right Foot Wound Culture - Preliminary Alpha hemolytic organism Radiography Diagnostic Testing: Radiology Impression Orbit X-Ray 07/28/22 09:30 IMPRESSION: No demonstrated metallic orbital foreign body. The patient is cleared for an MRI examination. Electronically Signed: Lb Easley MD at 9:49 EST , Lower Extremity MRI 07/28/22 09:58 IMPRESSION: Moderate arthrosis of the MTP and IP joints with hammertoe deformities. Superficial soft tissue ulceration with extensions to the dorsal and plantar surface of the soft tissues medial to the proximal phalanx of the first toe. Probable small superficial abscess disease dorsally and on the plantar surface of the foot as described. No bone erosion or high signal intensity within any of the visualized osseous structures to suggest osteomyelitis. Electronically Signed: Skyler Boyce, at 11:03 EST , Physical Exam Const alert, oriented x3, no apparent distress, average body habitus and healthy appearing General Appearance: cooperative, well kempt and well developed Orientation / Consciousness: awake, oriented to person, oriented to place and oriented to time HEENT normocephalic and moist oral mucous membranes Eyes PERRL, EOMs intact bilaterally and conjunctivae normal Neck supple, no JVD, thyroid normal and no carotid bruits General: trachea midline Resp normal respiratory effort, no retractions, no use of accessory muscles and clear to auscultation bilaterally Auscultation: Negative for rales, rhonchi or wheezes Cardio regular rate, regular rhythm, S1 normal heart sound, S2 normal heart sound, no murmurs, no rub and no gallops GI normal to inspection, nondistended, normoactive bowel sounds, soft to palpation, non-tender and non-distended Extremity Extremity Narrative: Patient's right foot is wrapped with surgical dressing, this was not removed for examination of the area Skin no rashes or lesions noted General Skin Exam: no breakdown Neuro oriented x3, CN's II-XII intact bilaterally, moves all extremities and no focal motor deficits Sensorium / Orientation: awake and alert Speech: speech normal Psych affect normal Assessment & Plan Assessment/Plan (1) Type 2 diabetes mellitus with diabetic polyneuropathy: PLAN: Plan 1. Type 2 diabetes-new diagnosis for the patient-patient's basal insulin will be increased to 20 units nightly, I will start the patient on metformin 500 mg twice daily, he will need follow-up as an outpatient with a PCP, he will be seen by nutritional services and diabetic teaching while he is in the hospital. Lipid profile will be drawn tomorrow morning. Patient will also have a UA ordered. #2 right great toe/right foot neuropathic ulceration secondary to diabetic neuropathy-patient is being seen by podiatry, he will need surgery to clean out his foot wound this Tuesday, there is no sign of osteomyelitis on MRI. Charges/Coding Visit Charges Inpatient E&M: 81524 Subs Hosp L2
[2022-07-28 18:56] LABS: Bacteria 0 SEEN /hpf (None Seen); Mucous, Urine 0 SEEN /hpf (<or=2+); Squamous Epithelial Cells - UA 0 SEEN /hpf (0-5); White Blood Cells 0 SEEN /hpf (0-5)
[2022-07-28 19:48] LABS: Color, Urine Yellow (Yellow); Glucose, Dipstick 1000 mg/dl (Normal); Ketone-Dipstick 5 mg/dl (Negative); Leukocyte Esterase-Dipstick Negative /ul (Negative); Nitrite-Dipstick Negative (Negative); Occult Blood-Urine 50 /ul (Negative); Protein-Dipstick 30 mg/dl (Negative); Urine Bilirubin Dipstick Negative (Negative); Urine Clarity Clear (Clear); Urine Urobilinogen Normal (Normal)
[2022-07-28 19:55] LABS: Red Blood Cells-Urine 0-5 SEEN /hpf (0-5)
[2022-07-28 21:06] LABS: Bedside Glucose 235 mg/dL (74-106)
[2022-07-28] MEDS: Insulin Glargine-YFGN 100 UNIT/ML Pen 20 UNIT SC (22:14)
[2022-07-28 22:46] LABS: Bedside Glucose 226 mg/dL (74-106)
[2022-07-29] MEDS: oxyCODONE 5 MG Tablet PO ×2 (05:15→14:33)
[2022-07-29 05:22] VITALS: BP 148/79; PULSE 79; RESP 16; TEMP 37.3; O2SAT 97
[2022-07-29 05:23] VITALS: BP 148/79; PULSE 79; RESP 16; TEMP 37.3; O2SAT 97
[2022-07-29] MEDS: Insulin Lispro 100 UNIT/ML INSULN.PEN SC ×3 (06:43→16:39)
[2022-07-29] MEDS: Heparin Injection (Vial) 5,000 UNIT/ML VIAL 5000 UNIT SC ×3 (06:44→22:30)
[2022-07-29 06:52] LABS: Vancomycin, Trough Level 6.6 ug/mL (5.0-15.0)
[2022-07-29 06:53] LABS: Cholesterol 114 mg/dL (200); High Density Lipoprotein 30 mg/dL; Triglycerides 121 mg/dL; Very Low Density Lipoprotein 24 mg/dL (5-40)
[2022-07-29 07:10] LABS: Bedside Glucose 174 mg/dL (74-106)
--- NOTE | 2022-07-29 08:05 | PCM.RX.CS ---
Consult Pharmacy has been consulted to manage selected antiobiotic: Vancomycin Type of Consult: Follow-up Suspected Infection: Skin/Soft tissue Prior Doses of Antibiotics Received/Current Regimen: Currently on 1500mg iv q12. Labs: Sodium 134 mmol/L (136-145) L 07/27/22 15:35 Potassium 4.8 mmol/L (3.5-5.1) 07/27/22 15:35 Chloride 99 mmol/L (98-107) 07/27/22 15:35 Carbon Dioxide 27.0 mmol/L (21.0-32.0) 07/27/22 15:35 Anion Gap 8 (5-15) 07/27/22 15:35 BUN 14 mg/dL (7-18) 07/27/22 15:35 Creatinine 0.91 mg/dL (0.70-1.30) 07/27/22 15:35 Est GFR (MDRD) Af Amer 109 mL/min (>60) 07/27/22 15:35 Est GFR (MDRD) Non-Af 90 mL/min (>60) 07/27/22 15:35 BUN/Creatinine Ratio 15.3 RATIO (10-20) 07/27/22 15:35 Glucose 293 mg/dL (74-106) H 07/27/22 15:35 Vancomycin Trough 6.6 ug/mL (5.0-15.0) 07/29/22 05:30 Microbiology: Microbiology 07/27/22 15:30 Wound - Right Foot Gram Stain - Final 07/27/22 15:30 Wound - Right Foot Wound Culture - Final Streptococcus mitis Weight used for dosin.7 kg Estimated Creatinine Clearance: 87ml/min Goal Trough: 15-20 mcg/mL Pharmacy Plan for Drug Dosing: Trough reported this AM was 6.6 and below desired goal of 15-20mcg/ml. Will change dose to 1gm iv q8h and get another trough before 4th dose of new regimen. Pharmacy Service will continue to monitor and adjust dosing as required. Follow-Up Labs: Trough Vancomycin - 07.30.22 @1975
[2022-07-29 08:59] VITALS: BP 143/67; PULSE 91; RESP 18; TEMP 36.5; O2SAT 96
[2022-07-29] MEDS: Juven (unflavored) Packet 1 PACKET PO ×2 (09:05→16:39)
--- NOTE | 2022-07-29 09:21 | PN_ITS ---
Subjective Subjective 61-year-old male seen bedside. No changes overnight. Denies constitutional's. Pain well controlled. Objective Data Objective Data Vital Signs: Vital Signs Temp Pulse Resp BP Pulse Ox O2 Del Method 97.7 F L 91 18 143/67 H 96 Room Air 07/29/22 08:59 07/29/22 08:59 07/29/22 08:59 07/29/22 08:59 07/29/22 08:59 07/29/22 08:59 Oxygen Delivery Method Room Air Weight: 86.7 kg Body Mass Index (BMI) 28.2 Intake & Output: Intake and Output for Last 24 Hours 07/27/22 07/28/22 07/29/22 23:59 23:59 23:59 Intake Total 425 / 1225 4486.5 / 4486.5 290 / 290 Output Total 3075 / 3875 1775 / 1775 Balance 425 / 400 1411.5 / 611.5 -1485 / -1485 Lab / Micro Data Result Diagrams: 07/27/22 15:35 07/27/22 15:35 Labs: Laboratory Results - last 24 hr 07/28/22 11:37: POC Glucose 235 H 07/28/22 16:37: POC Glucose 242 H 07/28/22 18:50: Urine Color Yellow, Urine Clarity Clear, Urine pH 5.0, Ur Specific [place] 1.020, Urine Protein 30 H, Urine Glucose (UA) 1000 H, Urine Ketones 5 H, Urine Occult Blood 50 H, Urine Nitrite Negative, Urine Bilirubin Negative, Urine Urobilinogen Normal, Ur Leukocyte Esterase Negative, Urine RBC 0-5 SEEN, Urine WBC 0 SEEN, Ur Squamous Epith Cells 0 SEEN, Urine Bacteria 0 SEEN, Urine Mucus 0 SEEN 07/28/22 22:07: POC Glucose 226 H 07/29/22 05:30: Vancomycin Trough 6.6 07/29/22 05:30: Triglycerides 121, Cholesterol 114, LDL Cholesterol 60, VLDL Cholesterol 24, HDL Cholesterol 30 L 07/29/22 06:41: POC Glucose 174 H Micro: Microbiology 07/27/22 15:30 Wound - Right Foot Gram Stain - Final 07/27/22 15:30 Wound - Right Foot Wound Culture - Final Streptococcus mitis Radiography Diagnostic Testing: Radiology Impression Orbit X-Ray 07/28/22 09:30 IMPRESSION: No demonstrated metallic orbital foreign body. The patient is cleared for an MRI examination. Electronically Signed: Lb Easley MD at 9:49 EST , Lower Extremity MRI 07/28/22 09:58 IMPRESSION: Moderate arthrosis of the MTP and IP joints with hammertoe deformities. Superficial soft tissue ulceration with extensions to the dorsal and plantar surface of the soft tissues medial to the proximal phalanx of the first toe. Probable small superficial abscess disease dorsally and on the plantar surface of the foot as described. No bone erosion or high signal intensity within any of the visualized osseous structures to suggest osteomyelitis. Electronically Signed: Skyler Boyce, at 11:03 EST , Physical Exam Narrative Patient alert oriented person place time. Vascular: Dorsalis pedis posterior tibial pulses palpable 2 out of 4 to bilateral lower extremity. Digital hair growth noted. Diffuse erythema warmth and edema to the right big toe extending into the anterior ankle. Neurologic: Light touch protective sensation diminished bilateral feet. Dermatologic: Diffuse necrotic ulcer noted to the right distal medial hallucal IPJ extending into the dorsal hallux. Full-thickness wound noted to plantar hallucal IPJ on the right side. This wound demonstrates an abscess along the dorsal aspect of the great toe as well as the plantar aspect of the toe Musculoskeletal: Hallux limitus deformity noted to the right lower extremity. Muscular strength full to bilateral lower extremity compartments. No other issues per Assessment & Plan Assessment/Plan (1) Non-pressure chronic ulcer of other part of right foot with necrosis of muscle: PLAN: Exam performed. Personal review of MRI demonstrates abscess of the dorsal and plantar great toe on the right lower extremity. Planning for incision and drainage of abscess Tuesday of this week. Patient will likely be able to DC to home with home health care. Wound redressed per wound care. IV vancomycin and Zosyn ordered per Hospitalist consulted for diabetes management. Infectious disease ordered. Patient can heel weight-bear in Cam walking boot. Dietitian consulted for nutritional discussion regarding new onset diabetes We will follow patient closely. (2) Type 2 diabetes mellitus with diabetic polyneuropathy: (3) Abscess of right foot:
[2022-07-29 09:40] LABS: Pathologist Review Reviewed
[2022-07-29 09:50] LABS: Hematocrit 36.5 % (40-54); Hemoglobin 12.8 g/dL (13.0-16.5); Mean Corp Hgb Conc 35.1 g/dL (32-36); Mean Corpuscular Hgb 31.3 pg (27.0-32.0); Mean Corpuscular Volume 89.2 fL (80-94); Mean Platelet Vol. 9.5 fl (6.2-12.0); Platelet Count 351 K/mm3 (150-450); RBC Distribution Width CV 12.2 % (11.6-14.6); RBC Distribution Width SD 39.9 fl (35.1-43.9); Red Blood Count 4.09 M/mm3 (4.6-6.2); White Blood Count 14.5 K/mm3 (4.4-11.0)
--- NOTE | 2022-07-29 09:55 | PCM.PN.ID ---
Physical Exam Narrative Foot pain controlled, no fever, no n/v/d. OR planned for tomorrow. Const alert and no apparent distress Resp normal air movement and clear to auscultation bilaterally Cardio regular rate and regular rhythm GI soft to palpation, non-tender and non-distended Skin Skin Narrative: foot wrapped ID ID: Route of nutrition/ use of supplements: [] Nutritional Intake: [] IV Site: [] Cabrera Catheter: [] Assessment & Plan Assessment/Plan (1) Type 2 diabetes mellitus with diabetic polyneuropathy: (2) Abscess of right foot: PLAN: MRI showed no osteo. Wound cx with mssa, strep, CoNS, GPR. Cont vanc/zosyn, surgery planned for tomorrow. Will follow, thank you
[2022-07-29 10:04] LABS: Anion Gap 9 (5-15); BUN 13 mg/dL (7-18); Calcium,Total 8.3 mg/dL (8.5-10.1); Chloride 102 mmol/L (98-107); Creatinine, Serum 0.68 mg/dL (0.70-1.30); EST Glomerular Filtration Rate 126 mL/min (>60); Est Glom Filt Rate - Afr Amer 152 mL/min (>60); Estimated Creatinine Clearance 116.97 ml/min; Glucose 185 mg/dL (74-106); Potassium 4.2 mmol/L (3.5-5.1); Sodium Level 136 mmol/L (136-145)
[2022-07-29 14:30] VITALS: BP 165/84; PULSE 78; RESP 18; TEMP 36.9; O2SAT 96
[2022-07-29] MEDS: Acetaminophen 500 MG Tablet PO (14:32)
[2022-07-29] MEDS: Vancomycin IV 1,000 MG/200 ML BAG 200 MG IV ×2 (14:37→22:30)
--- NOTE | 2022-07-29 15:17 | CASEMGMT ---
HAILEY BLUM note: Per Gena Huber RN, she has met w/pt and his and they have signed on for Pt Link @ discharge. and pt told this HAILEY BLUM that they would be interested in getting glucometer from [facility] Retail pharmacy, if they are in network w/pt's insurance and depending on cost. Script obtained from Dr Dugan for glucometer and tubed to the pharmacy. Per Michaela, cost would be $75.42 through pt's insurance, or they could get the glucometer w/supplies OTC for approx $30. made aware and states she may check @ [facility]. Script for glucometer provided to and encouraged her to get a glucometer and bring it into [facility] so someone can teach/instruct her and pt how to use. She voices understanding and appreciation. and pt also state they would like assistance w/finding a PCP for appt to get established as a new patient. They do not have a preference of PCP. Call placed to [facility]. Appt scheduled w/Dr Harvey for TueAug 11 @ 9 AM. Pt to arrive @ 8:30 AM. Pt and made aware and info placed in pt's discharge plan. HAILEY BLUM also discussed CCN w/pt and he is also interested in CCN. Order placed for CCN consult and call placed to [facility]. She was made aware pt has signed w/Pt Link also. Pt states he may be interested in getting a knee scooter. He says he has access to a walker, but not sure if it is the correct height/size, and has access to a W/C. Lilliana BAERN HAILEY CM
--- NOTE | 2022-07-29 16:34 | PN.HOSP_ITS ---
Subjective Subjective Patient was seen and examined today, he does not appear to need any cholesterol medication as his LDL is low, patient does have protein in his urine however and I have elected to place him on a small amount of an ELINA inhibitor. Objective Data Objective Data Vital Signs: Vital Signs Temp Pulse Resp BP Pulse Ox O2 Del Method 98.4 F 78 18 165/84 H 96 Room Air 07/29/22 14:30 07/29/22 14:30 07/29/22 14:30 07/29/22 14:30 07/29/22 14:30 07/29/22 14:30 Oxygen Delivery Method Room Air Weight: 86.7 kg Body Mass Index (BMI) 28.2 Intake & Output: Intake and Output for Last 24 Hours 07/27/22 07/28/22 07/29/22 23:59 23:59 23:59 Intake Total 425 / 1225 4486.5 / 4486.5 1235.25 / 1235.25 Output Total 3075 / 3875 1775 / 1775 Balance 425 / 400 1411.5 / 611.5 -539.75 / -539.75 Lab / Micro Data Result Diagrams: 07/29/22 05:30 07/29/22 05:30 Labs: Laboratory Results - last 24 hr 07/27/22 15:35: Diff Path Review Reviewed 07/28/22 11:37: POC Glucose 235 H 07/28/22 16:37: POC Glucose 242 H 07/28/22 18:50: Urine Color Yellow, Urine Clarity Clear, Urine pH 5.0, Ur Specific [place] 1.020, Urine Protein 30 H, Urine Glucose (UA) 1000 H, Urine Ketones 5 H, Urine Occult Blood 50 H, Urine Nitrite Negative, Urine Bilirubin Negative, Urine Urobilinogen Normal, Ur Leukocyte Esterase Negative, Urine RBC 0-5 SEEN, Urine WBC 0 SEEN, Ur Squamous Epith Cells 0 SEEN, Urine Bacteria 0 SEEN, Urine Mucus 0 SEEN 07/28/22 22:07: POC Glucose 226 H 07/29/22 05:30: Vancomycin Trough 6.6 07/29/22 05:30: Triglycerides 121, Cholesterol 114, LDL Cholesterol 60, VLDL Cholesterol 24, HDL Cholesterol 30 L 07/29/22 05:30: WBC 14.5 H, RBC 4.09 L, Hgb 12.8 L, Hct 36.5 L, MCV 89.2, MCH 31.3, MCHC 35.1, RDW Std Deviation 39.9, RDW Coeff of Emmanuel 12.2, Plt Count 351, MPV 9.5 07/29/22 05:30: Sodium 136, Potassium 4.2, Chloride 102, Carbon Dioxide 25.0, Anion Gap 9, BUN 13, Creatinine 0.68 L, Estim Creat Clear Calc 116.97, Est GFR (MDRD) Af Amer 152, Est GFR (MDRD) Non-Af 126, BUN/Creatinine Ratio 19.0, Glucose 185 H, Calcium 8.3 L 07/29/22 06:41: POC Glucose 174 H Micro: Microbiology 07/27/22 15:30 Wound - Right Foot Gram Stain - Final 07/27/22 15:30 Wound - Right Foot Wound Culture - Final Streptococcus mitis Physical Exam Narrative alert, oriented x3, no apparent distress, average body habitus and healthy appearing General Appearance: cooperative, well kempt and well developed Orientation / Consciousness: awake, oriented to person, oriented to place and oriented to time HEENT normocephalic and moist oral mucous membranes Eyes PERRL, EOMs intact bilaterally and conjunctivae normal Neck supple, no JVD, thyroid normal and no carotid bruits General: trachea midline Resp normal respiratory effort, no retractions, no use of accessory muscles and clear to auscultation bilaterally Auscultation: Negative for rales, rhonchi or wheezes Cardio regular rate, regular rhythm, S1 normal heart sound, S2 normal heart sound, no murmurs, no rub and no gallops GI normal to inspection, nondistended, normoactive bowel sounds, soft to palpation, non-tender and non-distended Extremity Extremity Narrative: Patient's right foot is wrapped with surgical dressing, this was not removed for examination of the area Skin no rashes or lesions noted General Skin Exam: no breakdown Neuro oriented x3, CN's II-XII intact bilaterally, moves all extremities and no focal motor deficits Sensorium / Orientation: awake and alert Speech: speech normal Psych affect normal Assessment & Plan Assessment/Plan (1) Type 2 diabetes mellitus with diabetic polyneuropathy: PLAN: Plan 1. Type 2 diabetes-new diagnosis for the patient-patient is currently on basal insulin and sliding scale insulin, I have added Glucophage 500 mg twice daily to his regimen today. Patient will be placed on lisinopril 5 mg daily due to protein in his urine. #2 right great toe/right foot neuropathic ulceration secondary to diabetic neuropathy-patient is being seen by podiatry, he will need surgery to clean out his foot wound this Tuesday, there is no sign of osteomyelitis on MRI. #3 right great toe/right foot abscess with staph, strep, and gram-positive karen- patient is currently on vancomycin and Zosyn, ID is following Charges/Coding Visit Charges Inpatient E&M: 86289 Subs Hosp L2
[2022-07-29] MEDS: metFORMIN HCl 500 MG Tablet PO (16:48)
[2022-07-29] MEDS: Lisinopril 5 MG Tablet PO (16:48)
[2022-07-29 17:00] LABS: Bedside Glucose 216 mg/dL (74-106)
[2022-07-29 17:00] LABS: Bedside Glucose 222 mg/dL (74-106)
[2022-07-29 20:30] VITALS: BP 127/95; PULSE 88; RESP 18; TEMP 37.1; O2SAT 98
[2022-07-29] MEDS: Insulin Glargine-YFGN 100 UNIT/ML Pen 20 UNIT SC (22:29)
[2022-07-29 22:55] LABS: Bedside Glucose 222 mg/dL (74-106)
[2022-07-30] VITALS (16 sets, daily range): BP systolic 91–151; BP diastolic 54–82; PULSE 66–90; RESP 16–18; TEMP 3.4–38.1; O2SAT 90–98; BMI 28.3
[2022-07-30] MEDS: oxyCODONE 5 MG Tablet PO (00:08)
[2022-07-30] MEDS: Lactated Ringers 1,000 ML 15 ML IV (05:25)
[2022-07-30 05:48] LABS: Absolute Lymphocyte Count 2.03 X10^3/uL (0.83-4.51); Absolute Neutrophil Count 11.8 X10^3/uL (2.0-7.7); Basophil# 0.08 X10^3/uL; Basophil% 0.5 % (0-1); Eosinophil# 0.12 X10^3/uL; Eosinophils% 0.8 % (0-5); Hematocrit 36.3 % (40-54); Hemoglobin 12.2 g/dL (13.0-16.5); Lymphocyte # 2.03 X10^3/ul (0.83-4.51); Lymphocyte % 13.1 % (19-41); Mean Corp Hgb Conc 33.6 g/dL (32-36); Mean Corpuscular Hgb 30.1 pg (27.0-32.0); Mean Corpuscular Volume 89.6 fL (80-94); Mean Platelet Vol. 9.4 fl (6.2-12.0); Monocyte# 1.04 X10^3/uL; Monocyte% 6.7 % (0-10); NRBC Flagged by Analyzer 0 % (0-5); Neutrophil # 11.77 X10^3/uL (2.7-7.7); Neutrophil % 75.8 % (47-70); Platelet Count 369 K/mm3 (150-450); RBC Distribution Width CV 12.1 % (11.6-14.6); RBC Distribution Width SD 39.9 fl (35.1-43.9); Red Blood Count 4.05 M/mm3 (4.6-6.2); White Blood Count 15.5 K/mm3 (4.4-11.0)
--- NOTE | 2022-07-30 06:00 | EKG12_ITS ---
Test Reason : MORNING EKG Blood Pressure : / mmHG Vent. Rate : 077 BPM Atrial Rate : 077 BPM P-R Int : 178 ms QRS Dur : 090 ms QT Int : 386 ms P-R-T Axes : 051 048 030 degrees QTc Int : 436 ms Normal sinus rhythm Normal ECG Confirmed by LIZ PAYNE, MK ([id number]), material expeditor CHASIDY HAN ([id number]) on 08/04/2022 8:01:15 AM Referred By: CHARLES Confirmed By:MK HILL MD
[2022-07-30 06:07] LABS: Anion Gap 6 (5-15); BUN 13 mg/dL (7-18); BUN/Creat Ratio 17.6 RATIO (10-20); Calcium,Total 8.7 mg/dL (8.5-10.1); Chloride 101 mmol/L (98-107); Creatinine, Serum 0.74 mg/dL (0.70-1.30); EST Glomerular Filtration Rate 115 mL/min (>60); Est Glom Filt Rate - Afr Amer 139 mL/min (>60); Estimated Creatinine Clearance 107.48 ml/min; Glucose 171 mg/dL (74-106); Potassium 3.8 mmol/L (3.5-5.1); Sodium Level 134 mmol/L (136-145)
--- NOTE | 2022-07-30 06:12 | NURSING ---
awaiting vanc trough and vanc dose to arrive
[2022-07-30] MEDS: Vancomycin IV 1,000 MG/200 ML BAG 200 MG IV ×2 (06:28→14:34)
[2022-07-30 06:31] LABS: Vancomycin, Trough Level 12.6 ug/mL (5.0-15.0)
--- NOTE | 2022-07-30 07:09 | PCM.RX.CS ---
Consult Pharmacy has been consulted to manage selected antiobiotic: Vancomycin Type of Consult: Follow-up Suspected Infection: Skin/Soft tissue Prior Doses of Antibiotics Received/Current Regimen: Currently on 1gm iv q8h. Previously on 1500mg iv q12h. Labs: Sodium 134 mmol/L (136-145) L 07/30/22 05:28 Potassium 3.8 mmol/L (3.5-5.1) 07/30/22 05:28 Chloride 101 mmol/L (98-107) 07/30/22 05:28 Carbon Dioxide 27.0 mmol/L (21.0-32.0) 07/30/22 05:28 Anion Gap 6 (5-15) 07/30/22 05:28 BUN 13 mg/dL (7-18) 07/30/22 05:28 Creatinine 0.74 mg/dL (0.70-1.30) 07/30/22 05:28 Est GFR (MDRD) Af Amer 139 mL/min (>60) 07/30/22 05:28 Est GFR (MDRD) Non-Af 115 mL/min (>60) 07/30/22 05:28 BUN/Creatinine Ratio 17.6 RATIO (10-20) 07/30/22 05:28 Glucose 171 mg/dL (74-106) H 07/30/22 05:28 Vancomycin Trough 12.6 ug/mL (5.0-15.0) 07/30/22 05:28 Microbiology: Microbiology 07/27/22 15:30 Wound - Right Foot Gram Stain - Final 07/27/22 15:30 Wound - Right Foot Wound Culture - Final Streptococcus mitis Weight used for dosin.7 kg Estimated Creatinine Clearance: 107ml/min Goal Trough: 15-20 mcg/mL Pharmacy Plan for Drug Dosing: Today's trough level was 12.6 (up from 6.6). Goal is 15-20mcg/ml. Will continue with same regimen and get another trough level in AM with expectation level will increase even further. Pharmacy Service will continue to monitor and adjust dosing as required. Follow-Up Labs: Trough Vancomycin - 07.31.22 @5339
--- NOTE | 2022-07-30 07:38 | WOUNDNOTE ---
Pt is being taken down to OR via bed at this time. present.
--- NOTE | 2022-07-30 07:44 | NURSING ---
pt to surgery
[2022-07-30 08:06] LABS: Bedside Glucose 177 mg/dL (74-106)
[2022-07-30] MEDS: Bupivacaine 0.25% 30 ML Vial ×2 (09:48→10:17)
--- NOTE | 2022-07-30 10:21 | PCM.OPRPT ---
Problems Associated Problem List Diagnoses (1) Abscess of right foot: (2) Non-pressure chronic ulcer of other part of right foot with necrosis of muscle: (3) Type 2 diabetes mellitus with diabetic polyneuropathy: Report of Operation Date of Procedure: 07/30/22 Pre-Operative Diagnosis: right foot abscess down to and including flexor and extensor hallucis longus tendon sheaths Post-Operative Diagnosis: same Surgery/Procedure Performed:: incision and drainage of abscess down to tendon sheath, right foot Description of Surgical Findings:: deep seropurulent abscess representing streptococcal species noted. Surgeon: Leonardo Cole weblogic administrator: None (Mary Ann Lawrence DPM PGYI) Type of Anesthesia: Local MAC Special Medications: 50cc 0.25% bupivicaine Specimen's removed: deep tissue right foot pre and post lavage swab cultures Drains: none Estimated Blood Loss (mL): minimal Description of Procedure: Patient presents with abscess to his right big toe confirmed by MRI, no bone involvement. Plan for incision and drainage of deep abscess performed today. Patient was brought back in the operating placed comfortably in supine position on the operating room table. Patient due to under MAC anesthesia. Preoperatively 30 cc of quarter percent Marcaine plain was used in a Foreman block technique. Aseptic technique was performed. Well-padded right ankle tourniquet was applied. This was not used throughout the case. Right lower extremity was scrubbed prepped draped in typical aseptic manner. A dorsal medial linear incision was made along the first metatarsal phalangeal joint extending from just distal to the joint to proximal shaft of the first metatarsal. Is a full-thickness incision with a 15 blade through the epidermis dermis into subcutaneous tissue dissection bluntly was performed down to level of fascia feet. Should be noted that a 7 cc of seropurulent abscess was drained during this process. On the distal aspect of the incision there is noted to be a 3 cc seropurulent abscess along the plantar aspect of the hallux which was also drained. Swab cultures. Labs were taken of this seropurulent drainage. Next the incision site was examined and all nonviable tissue was exposed excisionally debrided and removed and sent to microbiology for further examination. This included segments of the flexor hallucis longus tendon as well as the extensor hallucis longus tendon. Postdebridement the wound demonstrated clean of any residual nonviable tissue there is healthy bleeding noted to the tissue that remained. At this time pulse lavage was performed using a 3 L bag of normal sterile saline. After pulse lavage additional swab cultures were taken. Next using only clean instruments a vessel loop closure was performed with a combination of red Vesseloops and a stapler. The goal of this is to not trap any deep abscess within the foot but to approximate the wound edges under light tension and allow for additional drainage from the site. Site was then dressed with Betadine paint 4 x 4's t Kerlix ABD pads and Nick bandage. Patient was transferred to PACU with vital signs stable vascular status intact all digits for further monitoring prior to transfer back to floor. Patient tolerated procedure and anesthesia well in apparent satisfactory condition. Patient will continue to receive antibiotics and will await final infectious disease antibiotic recommendations prior to discharge. Patient will discharge to home with home health care dressing changes, consisting of dressing changes 3 times a week consisting Betadine soaked 4 x 4's, dry 4 x 4's, Kerlix, Nick bandage. Patient will maintain heel weightbearing assisted by a walker and a cam walking boot to offload the wound site. Patient will follow up in our clinic on a weekly basis.
--- NOTE | 2022-07-30 12:16 | PCM.PN.ID ---
Physical Exam Narrative Feeling ok s/p OR. No fever. Const alert and no apparent distress Resp normal air movement and clear to auscultation bilaterally Cardio regular rate and regular rhythm GI soft to palpation, non-tender and non-distended Skin Skin Narrative: foot wrapped ID ID: Route of nutrition/ use of supplements: [] Nutritional Intake: [] IV Site: [] Cabrera Catheter: [] Assessment & Plan Assessment/Plan (1) Type 2 diabetes mellitus with diabetic polyneuropathy: (2) Abscess of right foot: PLAN: MRI showed no osteo. Wound cx with mssa, strep, CoNS, GPR. Cont vanc/zosyn for now. Now s/p I&D of abscesses 07/30/[address] Cole. Plan at this point is for home with one additional week po doxy 100mg bid and augmentin 875mg bid. Will follow
[2022-07-30] MEDS: Lisinopril 5 MG Tablet PO (12:33)
[2022-07-30 12:35] LABS: Bedside Glucose 147 mg/dL (74-106)
--- NOTE | 2022-07-30 14:02 | PN.HOSP_ITS ---
Subjective Subjective She was seen and examined today, he complains of postop foot pain but otherwise he has no specific complaints. Patient's white blood cell count today was 15.5, right foot wound on 07/27/2022 grew grew out Streptococcus mitis. The patient's wound on 07/23/2022 grew out staph NATA which was methicillin sensitive coag negative staph and gram-positive karen. Objective Data Objective Data Vital Signs: Vital Signs Temp Pulse Resp BP Pulse Ox O2 Del Method O2 Flow Rate 97.1 F L 74 18 146/82 H 96 Nasal Cannula 2 07/30/22 12:08 07/30/22 12:08 07/30/22 12:08 07/30/22 12:08 07/30/22 12:08 07/30/22 12:08 07/30/22 12:08 Oxygen Flow Rate (L/min) 2 Oxygen Delivery Method Nasal Cannula Weight: 86.7 kg Body Mass Index (BMI) 28.3 Intake & Output: Intake and Output for Last 24 Hours 07/28/22 07/29/22 07/30/22 23:59 23:59 23:59 Intake Total 4486.5 / 4486.5 2535.25 / 2535.25 1989.38 / 1989.38 Output Total 3075 / 3875 3375 / 3375 1000 / 1000 Balance 1411.5 / 611.5 -839.75 / -839.75 990.38 / 990.38 Lab / Micro Data Result Diagrams: 07/30/22 05:28 07/30/22 05:28 Labs: Laboratory Results - last 24 hr 07/29/22 11:23: POC Glucose 222 H 07/29/22 16:37: POC Glucose 216 H 07/29/22 22:13: POC Glucose 222 H 07/30/22 05:28: Vancomycin Trough 12.6 07/30/22 05:28: WBC 15.5 H, RBC 4.05 L, Hgb 12.2 L, Hct 36.3 L, MCV 89.6, MCH 30.1, MCHC 33.6, RDW Std Deviation 39.9, RDW Coeff of Emmanuel 12.1, Plt Count 369, MPV 9.4, Immature Gran % (Auto) 3.100 H, Neut % (Auto) 75.8 H, Lymph % (Auto) 13.1 L, [place] % (Auto) 6.7, Eos % (Auto) 0.8, Baso % (Auto) 0.5, Absolute Neuts (auto) 11.8 H, Absolute Lymphs (auto) 2.03, Nucleated RBC % 0 07/30/22 05:28: Sodium 134 L, Potassium 3.8, Chloride 101, Carbon Dioxide 27.0, Anion Gap 6, BUN 13, Creatinine 0.74, Estim Creat Clear Calc 107.48, Est GFR (MDRD) Af Amer 139, Est GFR (MDRD) Non-Af 115, BUN/Creatinine Ratio 17.6, Glucose 171 H, Calcium 8.7 07/30/22 07:44: POC Glucose 177 H 07/30/22 12:11: POC Glucose 147 H Micro: Microbiology 07/30/22 Unknown Wound - Right Foot Gram Stain - Final 07/30/22 Unknown Wound - Right Foot Gram Stain - Final 07/30/22 Unknown Wound - Right Foot Gram Stain - Final 07/27/22 15:30 Wound - Right Foot Gram Stain - Final 07/27/22 15:30 Wound - Right Foot Wound Culture - Final Streptococcus mitis Physical Exam Narrative alert, oriented x3, no apparent distress, average body habitus and healthy appearing General Appearance: cooperative, well kempt and well developed Orientation / Consciousness: awake, oriented to person, oriented to place and oriented to time HEENT normocephalic and moist oral mucous membranes Eyes PERRL, EOMs intact bilaterally and conjunctivae normal Neck supple, no JVD, thyroid normal and no carotid bruits General: trachea midline Resp normal respiratory effort, no retractions, no use of accessory muscles and clear to auscultation bilaterally Auscultation: Negative for rales, rhonchi or wheezes Cardio regular rate, regular rhythm, S1 normal heart sound, S2 normal heart sound, no murmurs, no rub and no gallops GI normal to inspection, nondistended, normoactive bowel sounds, soft to palpation, non-tender and non-distended Extremity Extremity Narrative: Patient's right foot is wrapped with surgical dressing, this was not removed for examination of the area Skin no rashes or lesions noted General Skin Exam: no breakdown Neuro oriented x3, CN's II-XII intact bilaterally, moves all extremities and no focal motor deficits Sensorium / Orientation: awake and alert Speech: speech normal Psych affect normal Assessment & Plan Assessment/Plan (1) Type 2 diabetes mellitus with diabetic polyneuropathy: PLAN: Plan 1. Type 2 diabetes-new diagnosis for the patient-patient is currently on basal insulin and sliding scale insulin in addition to metformin. Patient was placed on an ELINA inhibitor yesterday due to protein in his urine. #2 right great toe/right foot neuropathic ulceration secondary to diabetic neuropathy-patient is being seen by podiatry, he is postop day 0 for debridement of his right great toe and right foot area. #3 right great toe/right foot abscess with staph, strep, and gram-positive karen- patient is currently on vancomycin and Zosyn, ID is following Charges/Coding Visit Charges Inpatient E&M: 97031 Subs Hosp L2
[2022-07-30] MEDS: oxyCODONE 5 MG Tablet 10 MG PO (14:08)
[2022-07-30] MEDS: Acetaminophen 500 MG Tablet PO ×2 (14:08→21:52)
[2022-07-30] MEDS: Heparin Injection (Vial) 5,000 UNIT/ML VIAL 5000 UNIT SC ×2 (14:40→21:54)
--- NOTE | 2022-07-30 15:00 | CASEMGMT ---
Addendum entered by Destiny Durbin 07/30/22 15:21: Received tc from Amara that [facility] can accept pt. Plan for SOC on Tuesday. Notified pt and . Original Note: RN KULWANT noted in op note that parole director would like C for pt. RN CM in to pt room, pt at bedside. Discussed HHC with patient and for dressing changes and diabetic education. Pt and agreeable. Patient was provided a list of HHC providers including quality and resource use data and consistent with the patient?s preferred geographic region, medical needs, and insurance network were provided from the [facility] Guide. [facility] Noted pt does not have PCP currently, messaged pod who states he will follow for the HHC. TC to Amara at [facility], referral made. Pt has picked up the BGM and it is in the room. Message sent to IVETH that HHC is being set up.
[2022-07-30] MEDS: Insulin Lispro 100 UNIT/ML INSULN.PEN SC (15:58)
[2022-07-30] MEDS: metFORMIN HCl 500 MG Tablet PO (16:01)
[2022-07-30] MEDS: Juven (unflavored) Packet 1 PACKET PO (16:01)
[2022-07-30 16:25] LABS: Bedside Glucose 174 mg/dL (74-106)
[2022-07-30 20:55] LABS: Bedside Glucose 163 mg/dL (74-106)
[2022-07-30] MEDS: Vancomycin IV 1,000 MG/200 ML BAG 150 MG IV (21:53)
[2022-07-30] MEDS: Insulin Glargine-YFGN 100 UNIT/ML Pen 20 UNIT SC (22:06)
[2022-07-30 22:25] LABS: Bedside Glucose 173 mg/dL (74-106)
[2022-07-31 00:30] VITALS: BP 149/82; PULSE 80; RESP 16; TEMP 36.8; O2SAT 96
[2022-07-31] MEDS: oxyCODONE 5 MG Tablet 10 MG PO ×4 (01:25→21:58)
[2022-07-31 04:30] VITALS: BP 139/87; PULSE 76; RESP 16; TEMP 37.1; O2SAT 93
[2022-07-31 05:28] LABS: Absolute Lymphocyte Count 1.96 X10^3/uL (0.83-4.51); Absolute Neutrophil Count 14.9 X10^3/uL (2.0-7.7); Basophil# 0.08 X10^3/uL; Basophil% 0.4 % (0-1); Eosinophil# 0.09 X10^3/uL; Eosinophils% 0.5 % (0-5); Hemoglobin 11.4 g/dL (13.0-16.5); Lymphocyte # 1.96 X10^3/ul (0.83-4.51); Lymphocyte % 10.5 % (19-41); Mean Corp Hgb Conc 33.5 g/dL (32-36); Mean Corpuscular Hgb 30.2 pg (27.0-32.0); Mean Corpuscular Volume 90.2 fL (80-94); Mean Platelet Vol. 9.2 fl (6.2-12.0); Monocyte% 7.5 % (0-10); NRBC Flagged by Analyzer 0 % (0-5); Neutrophil # 14.86 X10^3/uL (2.7-7.7); Neutrophil % 79.3 % (47-70); Platelet Count 359 K/mm3 (150-450); RBC Distribution Width CV 12.2 % (11.6-14.6); RBC Distribution Width SD 40.5 fl (35.1-43.9); Red Blood Count 3.77 M/mm3 (4.6-6.2); White Blood Count 18.7 K/mm3 (4.4-11.0)
[2022-07-31 05:45] LABS: Anion Gap 7 (5-15); BUN 15 mg/dL (7-18); BUN/Creat Ratio 15.5 RATIO (10-20); Calcium,Total 8.4 mg/dL (8.5-10.1); Chloride 101 mmol/L (98-107); Creatinine, Serum 0.96 mg/dL (0.70-1.30); EST Glomerular Filtration Rate 85 mL/min (>60); Est Glom Filt Rate - Afr Amer 102 mL/min (>60); Estimated Creatinine Clearance 80.16 ml/min; Glucose 138 mg/dL (74-106); Potassium 3.7 mmol/L (3.5-5.1); Sodium Level 135 mmol/L (136-145)
[2022-07-31 05:47] LABS: Vancomycin, Trough Level 14.6 ug/mL (5.0-15.0)
--- NOTE | 2022-07-31 05:55 | PCM.RX.CS ---
Consult Pharmacy has been consulted to manage selected antiobiotic: Vancomycin Type of Consult: Follow-up Prior Doses of Antibiotics Received/Current Regimen: Medications Vancomycin HCl (Vancomycin) 1,000 mg in 200 mls @ 200 mls/hr IV Q8H ANGELLA Last Admin: 07/30/22 23:13 Dose: Infused Labs: Sodium 135 mmol/L (136-145) L 07/31/22 05:22 Potassium 3.7 mmol/L (3.5-5.1) 07/31/22 05:22 Chloride 101 mmol/L (98-107) 07/31/22 05:22 Carbon Dioxide 27.0 mmol/L (21.0-32.0) 07/31/22 05:22 Anion Gap 7 (5-15) 07/31/22 05:22 BUN 15 mg/dL (7-18) 07/31/22 05:22 Creatinine 0.96 mg/dL (0.70-1.30) 07/31/22 05:22 Est GFR (MDRD) Af Amer 102 mL/min (>60) 07/31/22 05:22 Est GFR (MDRD) Non-Af 85 mL/min (>60) 07/31/22 05:22 BUN/Creatinine Ratio 15.5 RATIO (10-20) 07/31/22 05:22 Glucose 138 mg/dL (74-106) H 07/31/22 05:22 Vancomycin Trough 14.6 ug/mL (5.0-15.0) 07/31/22 05:22 Microbiology: Microbiology 07/30/22 Unknown Wound - Right Foot Gram Stain - Final 07/30/22 Unknown Wound - Right Foot Gram Stain - Final 07/30/22 Unknown Wound - Right Foot Gram Stain - Final 07/27/22 15:30 Wound - Right Foot Gram Stain - Final 07/27/22 15:30 Wound - Right Foot Wound Culture - Final Streptococcus mitis Weight used for dosin kg Goal Trough: 15-20 mcg/mL Pharmacy Plan for Drug Dosing: Trough on q8 near goal range, trending up, near upper level. Recommend to continue current dosing and re-check level in 48 hours. Pharmacy Service will continue to monitor and adjust dosing as required. Follow-Up Labs: Trough Vancomycin - 08/02 @ 6430
[2022-07-31] MEDS: Vancomycin IV 1,000 MG/200 ML BAG 200 MG IV ×3 (06:38→21:47)
[2022-07-31] MEDS: Heparin Injection (Vial) 5,000 UNIT/ML VIAL 5000 UNIT SC ×3 (06:45→21:56)
[2022-07-31 06:47] VITALS: BP 141/81; PULSE 81; RESP 16; TEMP 37.2; O2SAT 94
[2022-07-31 07:00] LABS: Bedside Glucose 133 mg/dL (74-106)
[2022-07-31] MEDS: Juven (unflavored) Packet 1 PACKET PO ×2 (09:26→16:29)
[2022-07-31] MEDS: Lisinopril 5 MG Tablet PO (09:27)
[2022-07-31] MEDS: metFORMIN HCl 500 MG Tablet PO (09:27)
[2022-07-31 12:56] LABS: Bedside Glucose 176 mg/dL (74-106)
[2022-07-31] MEDS: Insulin Lispro 100 UNIT/ML INSULN.PEN SC ×2 (12:58→16:32)
--- NOTE | 2022-07-31 13:12 | PN_ITS ---
Objective Data Objective Data Vital Signs: Vital Signs Temp Pulse Resp BP Pulse Ox O2 Del Method O2 Flow Rate 98.9 F 81 16 141/81 H 94 Room Air 2 07/31/22 06:47 07/31/22 06:47 07/31/22 06:47 07/31/22 06:47 07/31/22 06:47 07/31/22 06:47 07/31/22 00:30 Oxygen Flow Rate (L/min) 2 Oxygen Delivery Method Room Air Weight: 86.7 kg Body Mass Index (BMI) 28.3 Intake & Output: Intake and Output for Last 24 Hours 07/29/22 07/30/22 07/31/22 23:59 23:59 23:59 Intake Total 2535.25 / 2535.25 3190.38 / 3190.38 1013 / 1013 Output Total 3375 / 3375 1950 / 2525 1974 / 1974 Balance -839.75 / -839.75 1240.38 / 665.38 -962 / -962 Lab / Micro Data Result Diagrams: 07/31/22 05:22 07/31/22 05:22 Labs: Laboratory Results - last 24 hr 07/30/22 15:53: POC Glucose 174 H 07/30/22 20:32: POC Glucose 163 H 07/30/22 22:03: POC Glucose 173 H 07/31/22 05:22: Vancomycin Trough 14.6 07/31/22 05:22: WBC 18.7 H, RBC 3.77 L, Hgb 11.4 L, Hct 34.0 L, MCV 90.2, MCH 30.2, MCHC 33.5, RDW Std Deviation 40.5, RDW Coeff of Emmanuel 12.2, Plt Count 359, MPV 9.2, Immature Gran % (Auto) 1.800 H, Neut % (Auto) 79.3 H, Lymph % (Auto) 10.5 L, [place] % (Auto) 7.5, Eos % (Auto) 0.5, Baso % (Auto) 0.4, Absolute Neuts (auto) 14.9 H, Absolute Lymphs (auto) 1.96, Nucleated RBC % 0 07/31/22 05:22: Sodium 135 L, Potassium 3.7, Chloride 101, Carbon Dioxide 27.0, Anion Gap 7, BUN 15, Creatinine 0.96, Estim Creat Clear Calc 80.16, Est GFR (MDRD) Af Amer 102, Est GFR (MDRD) Non-Af 85, BUN/Creatinine Ratio 15.5, Glucose 138 H, Calcium 8.4 L 07/31/22 06:37: POC Glucose 133 H 07/31/22 12:34: POC Glucose 176 H Micro: Microbiology 07/30/22 Unknown Wound - Right Foot Gram Stain - Final 07/30/22 Unknown Wound - Right Foot Wound Culture - Preliminary Alpha Hemolytic Streptococcus 07/30/22 Unknown Wound - Right Foot Gram Stain - Final 07/30/22 Unknown Wound - Right Foot Wound Culture - Preliminary No growth-Final to follow 07/30/22 Unknown Wound - Right Foot Gram Stain - Final 07/30/22 Unknown Wound - Right Foot Wound Culture - Preliminary No growth-Final to follow 07/27/22 15:30 Wound - Right Foot Gram Stain - Final 07/27/22 15:30 Wound - Right Foot Wound Culture - Final Streptococcus mitis Physical Exam Narrative Patient alert oriented person place time. NAD. Vascular: Dorsalis pedis posterior tibial pulses palpable 2 out of 4 to right lower extremity. Digital hair growth noted. Diffuse erythema warmth and edema to the foot which appears to be improving. Neurologic: Light touch protective sensation diminished. Dermatologic: s/p I+D to the right 1st ray with full-thickness wound noted, there is no purulence, no fluctuance, no visible abscess, no crepitus, no maloder, no streaking; improved tissues, with granular tissue noted. Musculoskeletal: Hallux limitus deformity noted to the right lower extremity. There is some pain to the surgical site. Assessment & Plan Assessment/Plan (1) Abscess of right foot: (2) Non-pressure chronic ulcer of other part of right foot with necrosis of muscle: (3) Type 2 diabetes mellitus with diabetic polyneuropathy: PLAN: Plan s/p right foot debridement I+D on 07/30/2022. Re-evaluation performed. Reviewed diagnostic stable. The foot is stable. We will continue to monitor foot to assess healing. Continue with IV antibiotics - pt on Vanc and Zosyn at this time. Continue to follow cultures. Daily dressing changes - betadine, 4x4 gauze, kerlix and tevin dressing. No weightbearing right foot, keep foot elevated. Diabetes and other medical problems - Appreciate hospitalist assistance
--- NOTE | 2022-07-31 14:31 | PCM.PN.HOSP ---
Subjective Subjective Patient was seen and examined today, I talked with podiatry about his care, podiatry examined his wound and felt that the patient needed continued IV antibiotic treatment for now and that it may be necessary to debride the wound further early next week. I talked to the patient's who was in the room. Patient complains of constipation he would like a laxative if possible, white blood cell count today was elevated at 18.7, patient does not look toxic. Objective Data Objective Data Vital Signs: Vital Signs Temp Pulse Resp BP Pulse Ox O2 Del Method O2 Flow Rate 98.9 F 81 16 141/81 H 94 Room Air 2 07/31/22 06:47 07/31/22 06:47 07/31/22 06:47 07/31/22 06:47 07/31/22 06:47 07/31/22 06:47 07/31/22 00:30 Oxygen Flow Rate (L/min) 2 Oxygen Delivery Method Room Air Weight: 86.7 kg Body Mass Index (BMI) 28.3 Intake & Output: Intake and Output for Last 24 Hours 07/29/22 07/30/22 07/31/22 23:59 23:59 23:59 Intake Total 2535.25 / 2535.25 3190.38 / 3190.38 1013 / 1013 Output Total 3375 / 3375 1950 / 2525 1974 / 1974 Balance -839.75 / -839.75 1240.38 / 665.38 -962 / -962 Lab / Micro Data Result Diagrams: 07/31/22 05:22 07/31/22 05:22 Labs: Laboratory Results - last 24 hr 07/30/22 15:53: POC Glucose 174 H 07/30/22 20:32: POC Glucose 163 H 07/30/22 22:03: POC Glucose 173 H 07/31/22 05:22: Vancomycin Trough 14.6 07/31/22 05:22: WBC 18.7 H, RBC 3.77 L, Hgb 11.4 L, Hct 34.0 L, MCV 90.2, MCH 30.2, MCHC 33.5, RDW Std Deviation 40.5, RDW Coeff of Emmanuel 12.2, Plt Count 359, MPV 9.2, Immature Gran % (Auto) 1.800 H, Neut % (Auto) 79.3 H, Lymph % (Auto) 10.5 L, [place] % (Auto) 7.5, Eos % (Auto) 0.5, Baso % (Auto) 0.4, Absolute Neuts (auto) 14.9 H, Absolute Lymphs (auto) 1.96, Nucleated RBC % 0 07/31/22 05:22: Sodium 135 L, Potassium 3.7, Chloride 101, Carbon Dioxide 27.0, Anion Gap 7, BUN 15, Creatinine 0.96, Estim Creat Clear Calc 80.16, Est GFR (MDRD) Af Amer 102, Est GFR (MDRD) Non-Af 85, BUN/Creatinine Ratio 15.5, Glucose 138 H, Calcium 8.4 L 07/31/22 06:37: POC Glucose 133 H 07/31/22 12:34: POC Glucose 176 H Micro: Microbiology 07/30/22 Unknown Wound - Right Foot Gram Stain - Final 07/30/22 Unknown Wound - Right Foot Wound Culture - Preliminary Alpha Hemolytic Streptococcus 07/30/22 Unknown Wound - Right Foot Gram Stain - Final 07/30/22 Unknown Wound - Right Foot Wound Culture - Preliminary No growth-Final to follow 07/30/22 Unknown Wound - Right Foot Gram Stain - Final 07/30/22 Unknown Wound - Right Foot Wound Culture - Preliminary No growth-Final to follow 07/27/22 15:30 Wound - Right Foot Gram Stain - Final 07/27/22 15:30 Wound - Right Foot Wound Culture - Final Streptococcus mitis Physical Exam Const alert, oriented x3, no apparent distress and healthy appearing General Appearance: cooperative, well kempt and well developed Orientation / Consciousness: awake, oriented to person, oriented to place and oriented to time HEENT normocephalic and moist oral mucous membranes Eyes PERRL, EOMs intact bilaterally and conjunctivae normal Neck supple, no JVD, thyroid normal and no carotid bruits General: trachea midline Resp normal respiratory effort and clear to auscultation bilaterally Auscultation: Negative for rales, rhonchi or wheezes Cardio regular rate, regular rhythm, no murmurs, no rub and no gallops GI normal to inspection, nondistended, normoactive bowel sounds, soft to palpation, non-tender and non-distended Extremity Extremity Narrative: Right foot is wrapped in surgical dressing and Nick wrap, this was not removed for examination Skin no rashes or lesions noted General Skin Exam: no breakdown Neuro oriented x3, CN's II-XII intact bilaterally, no focal motor deficits and no sensory deficits noted Sensorium / Orientation: awake and alert Speech: speech normal Psych affect normal Assessment & Plan Assessment/Plan (1) Abscess of right foot: (2) Type 2 diabetes mellitus with diabetic polyneuropathy: PLAN: Plan 1. Type 2 diabetes-new diagnosis for the patient-patient is currently on basal insulin and sliding scale insulin in addition to metformin. #2 right great toe/right foot neuropathic ulceration secondary to diabetic neuropathy-patient is being seen by podiatry, he is postop day 1 for debridement of his right great toe and right foot area. #3 right great toe/right foot abscess with staph, strep, and gram-positive karen-patient is currently on vancomycin and Zosyn, ID is following Charges/Coding Visit Charges Inpatient E&M: 31048 Subs Hosp L2
[2022-07-31] MEDS: Bisacodyl 5 MG Tablet 10 MG PO (15:00)
[2022-07-31 16:36] VITALS: BP 150/76; PULSE 86; RESP 20; TEMP 36.8; O2SAT 96
[2022-07-31] MEDS: metFORMIN HCl 1,000 MG Tablet 1000 MG PO (16:51)
[2022-07-31 17:05] LABS: Bedside Glucose 169 mg/dL (74-106)
[2022-07-31] MEDS: Ondansetron 4 MG/2 ML Vial IV (21:43)
[2022-07-31] MEDS: Insulin Glargine-YFGN 100 UNIT/ML Pen 20 UNIT SC (21:55)
[2022-07-31] MEDS: Acetaminophen 500 MG Tablet PO (21:57)
[2022-07-31 22:14] VITALS: BP 146/76; PULSE 76; RESP 16; TEMP 37.4; O2SAT 96
[2022-08-01 00:55] LABS: Bedside Glucose 161 mg/dL (74-106)
[2022-08-01 05:00] VITALS: BP 133/75; PULSE 80; RESP 16; TEMP 37.2; O2SAT 96
[2022-08-01] MEDS: Ondansetron 4 MG/2 ML Vial IV (06:26)
[2022-08-01] MEDS: Heparin Injection (Vial) 5,000 UNIT/ML VIAL 5000 UNIT SC ×3 (06:30→22:07)
[2022-08-01] MEDS: Vancomycin IV 1,000 MG/200 ML BAG 200 MG IV (06:30)
[2022-08-01] MEDS: Insulin Lispro 100 UNIT/ML INSULN.PEN SC ×3 (06:34→16:24)
[2022-08-01] MEDS: oxyCODONE 5 MG Tablet 10 MG PO ×2 (06:45→19:48)
[2022-08-01 07:22] LABS: Absolute Lymphocyte Count 1.45 X10^3/uL (0.83-4.51); Absolute Neutrophil Count 11.1 X10^3/uL (2.0-7.7); Basophil# 0.06 X10^3/uL; Basophil% 0.4 % (0-1); Eosinophil# 0.11 X10^3/uL; Eosinophils% 0.8 % (0-5); Hematocrit 34.6 % (40-54); Hemoglobin 11.4 g/dL (13.0-16.5); Lymphocyte # 1.45 X10^3/ul (0.83-4.51); Lymphocyte % 10.2 % (19-41); Mean Corp Hgb Conc 32.9 g/dL (32-36); Mean Corpuscular Hgb 30.6 pg (27.0-32.0); Mean Platelet Vol. 9.7 fl (6.2-12.0); Monocyte# 1.16 X10^3/uL; Monocyte% 8.2 % (0-10); NRBC Flagged by Analyzer 0 % (0-5); Neutrophil # 11.08 X10^3/uL (2.7-7.7); Neutrophil % 78.1 % (47-70); Platelet Count 376 K/mm3 (150-450); RBC Distribution Width CV 12.2 % (11.6-14.6); RBC Distribution Width SD 41.4 fl (35.1-43.9); Red Blood Count 3.72 M/mm3 (4.6-6.2); White Blood Count 14.2 K/mm3 (4.4-11.0)
[2022-08-01 07:30] LABS: Bedside Glucose 155 mg/dL (74-106)
[2022-08-01 07:55] LABS: Anion Gap 8 (5-15); BUN 21 mg/dL (7-18); BUN/Creat Ratio 16.7 RATIO (10-20); Calcium,Total 8.7 mg/dL (8.5-10.1); Chloride 98 mmol/L (98-107); Creatinine, Serum 1.26 mg/dL (0.70-1.30); EST Glomerular Filtration Rate 62 mL/min (>60); Est Glom Filt Rate - Afr Amer 75 mL/min (>60); Estimated Creatinine Clearance 61.07 ml/min; Glucose 142 mg/dL (74-106); Potassium 3.6 mmol/L (3.5-5.1); Sodium Level 132 mmol/L (136-145)
[2022-08-01 08:08] VITALS: BP 153/77; PULSE 81; RESP 16; TEMP 36.8; O2SAT 93
[2022-08-01] MEDS: Juven (unflavored) Packet 1 PACKET PO ×2 (08:24→16:24)
--- NOTE | 2022-08-01 08:26 | PN_ITS ---
Subjective Subjective Patient was seen this morning for follow up on foot. Patient afebrile. WBC has trended down. He is resting comfortably in bed. He relates to some nausea. He has no fever, chills, or vomiting. Objective Data Objective Data Vital Signs: Vital Signs Temp Pulse Resp BP Pulse Ox O2 Del Method O2 Flow Rate 98.3 F 81 16 153/77 H 93 Room Air 2 08/01/22 08:08 08/01/22 08:08 08/01/22 08:08 08/01/22 08:08 08/01/22 08:08 08/01/22 08:08 07/31/22 00:30 Oxygen Flow Rate (L/min) 2 Oxygen Delivery Method Room Air Weight: 86.7 kg Body Mass Index (BMI) 28.3 Intake & Output: Intake and Output for Last 24 Hours 07/30/22 07/31/22 08/01/22 23:59 23:59 23:59 Intake Total 3190.38 / 3190.38 1823 / 1823 50 / 50 Output Total 1950 / 2525 3325 / 3325 Balance 1240.38 / 665.38 -1502 / -1502 50 / 50 Lab / Micro Data Result Diagrams: 08/01/22 06:38 08/01/22 06:38 Labs: Laboratory Results - last 24 hr 07/31/22 12:34: POC Glucose 176 H 07/31/22 16:28: POC Glucose 169 H 07/31/22 21:54: POC Glucose 161 H 08/01/22 06:34: POC Glucose 155 H 08/01/22 06:38: WBC 14.2 H, RBC 3.72 L, Hgb 11.4 L, Hct 34.6 L, MCV 93.0, MCH 30.6, MCHC 32.9, RDW Std Deviation 41.4, RDW Coeff of Emmanuel 12.2, Plt Count 376, MPV 9.7, Immature Gran % (Auto) 2.300 H, Neut % (Auto) 78.1 H, Lymph % (Auto) 10.2 L, [place] % (Auto) 8.2, Eos % (Auto) 0.8, Baso % (Auto) 0.4, Absolute Neuts (auto) 11.1 H, Absolute Lymphs (auto) 1.45, Nucleated RBC % 0 08/01/22 06:38: Sodium 132 L, Potassium 3.6, Chloride 98, Carbon Dioxide 26.0, Anion Gap 8, BUN 21 H, Creatinine 1.26, Estim Creat Clear Calc 61.07, Est GFR (MDRD) Af Amer 75, Est GFR (MDRD) Non-Af 62, BUN/Creatinine Ratio 16.7, Glucose 142 H, Calcium 8.7 Micro: Microbiology 07/30/22 Unknown Wound - Right Foot Gram Stain - Final 07/30/22 Unknown Wound - Right Foot Wound Culture - Preliminary Alpha Hemolytic Streptococcus 07/30/22 Unknown Wound - Right Foot Gram Stain - Final 07/30/22 Unknown Wound - Right Foot Wound Culture - Preliminary No growth-Final to follow 07/30/22 Unknown Wound - Right Foot Gram Stain - Final 07/30/22 Unknown Wound - Right Foot Wound Culture - Preliminary No growth-Final to follow 07/27/22 15:30 Wound - Right Foot Gram Stain - Final 07/27/22 15:30 Wound - Right Foot Wound Culture - Final Streptococcus mitis Physical Exam Narrative Patient alert oriented person place time. NAD. Vascular: Dorsalis pedis posterior tibial pulses palpable 2 out of 4 to right lower extremity. Digital hair growth noted. Diffuse erythema warmth and edema to the foot which is less today. Neurologic: Light touch protective sensation diminished. Dermatologic: s/p I+D to the right 1st ray with full-thickness wound noted, there is no purulence, no fluctuance, no visible abscess, no crepitus, no maloder, no streaking; improved tissues, with granular tissue noted, but there is some mid 1st metatarsal dry eschar noted at medial aspect. Musculoskeletal: Hallux limitus deformity noted to the right lower extremity. There is some pain to the surgical site, but improved. Assessment & Plan Assessment/Plan (1) Abscess of right foot: (2) Non-pressure chronic ulcer of other part of right foot with necrosis of muscle: (3) Type 2 diabetes mellitus with diabetic polyneuropathy: PLAN: Plan s/p right foot debridement I+D on 07/30/2022. Re-evaluation performed. Reviewed diagnostic stable. The foot is overall improving. We will continue to monitor foot to assess healing. Continue with IV antibiotics - pt on Vanc and Zosyn at this time. Continue to follow cultures. Daily dressing changes - betadine, 4x4 gauze, kerlix and tevin dressing. No weightbearing right foot, keep foot elevated. Diabetes and other medical problems - Appreciate hospitalist assistance.
[2022-08-01] MEDS: metFORMIN HCl 1,000 MG Tablet 1000 MG PO (08:28)
--- NOTE | 2022-08-01 09:20 | PCM.RX.CS ---
Consult Pharmacy has been consulted to manage selected antiobiotic: Vancomycin Type of Consult: Follow-up Suspected Infection: Skin/Soft tissue Labs: Sodium 132 mmol/L (136-145) L 08/01/22 06:38 Potassium 3.6 mmol/L (3.5-5.1) 08/01/22 06:38 Chloride 98 mmol/L (98-107) 08/01/22 06:38 Carbon Dioxide 26.0 mmol/L (21.0-32.0) 08/01/22 06:38 Anion Gap 8 (5-15) 08/01/22 06:38 BUN 21 mg/dL (7-18) H 08/01/22 06:38 Creatinine 1.26 mg/dL (0.70-1.30) 08/01/22 06:38 Est GFR (MDRD) Af Amer 75 mL/min (>60) 08/01/22 06:38 Est GFR (MDRD) Non-Af 62 mL/min (>60) 08/01/22 06:38 BUN/Creatinine Ratio 16.7 RATIO (10-20) 08/01/22 06:38 Glucose 142 mg/dL (74-106) H 08/01/22 06:38 Vancomycin Trough 14.6 ug/mL (5.0-15.0) 07/31/22 05:22 Microbiology: Microbiology 07/30/22 Unknown Wound - Right Foot Gram Stain - Final 07/30/22 Unknown Wound - Right Foot Wound Culture - Preliminary Alpha Hemolytic Streptococcus 07/30/22 Unknown Wound - Right Foot Gram Stain - Final 07/30/22 Unknown Wound - Right Foot Wound Culture - Preliminary No growth-Final to follow 07/30/22 Unknown Wound - Right Foot Gram Stain - Final 07/30/22 Unknown Wound - Right Foot Wound Culture - Preliminary No growth-Final to follow 07/27/22 15:30 Wound - Right Foot Gram Stain - Final 07/27/22 15:30 Wound - Right Foot Wound Culture - Final Streptococcus mitis Goal Trough: 15-20 mcg/mL Pharmacy Plan for Drug Dosing: DAILY ASSESSMENT Current Vancomycin Dose: 1000mg IV Q8h Number of Doses Received: 9 Current Renal Function: 1.26 Renal Function Trend: SCr increased from 0.71 (07/30), 0.96 (07/31) Any Change in Vanc Plan: The patient has previously been stable on 1000mg IV Q8h, with the last trough being 14.6 on 07/31. The patient has had a significant increase in SCr. Due to this, will plan on drawing a random level prior to the next dose of vancomycin. Pharmacy contacted nursing to make them aware so that the scheduled 1400 dose does not get hung until patient's random trough level returns. Will adjust dosing if indicated once labs return Pending Level: *RANDOM* level 08/01/22 @1330 Pharmacy Service will continue to monitor and adjust dosing as required.
[2022-08-01] MEDS: Lisinopril 5 MG Tablet PO (10:10)
[2022-08-01] MEDS: Lactulose 20 GM/30 ML UDC 30 GM PO ×2 (10:12→12:16)
--- NOTE | 2022-08-01 11:18 | PCM.PN.HOSP ---
Subjective Subjective Seen and examined today, I examined his right foot with podiatry today when they changed his dressing, there looks like there is some nonviable tissue on the wound, he will be reevaluated by podiatry tomorrow. Patient's white blood cell count today was better at 14.2, his blood sugar was 155 this morning. Objective Data Objective Data Vital Signs: Vital Signs Temp Pulse Resp BP Pulse Ox O2 Del Method O2 Flow Rate 98.3 F 81 16 153/77 H 93 Room Air 2 08/01/22 08:08 08/01/22 08:08 08/01/22 08:08 08/01/22 08:08 08/01/22 08:08 08/01/22 08:08 07/31/22 00:30 Oxygen Flow Rate (L/min) 2 Oxygen Delivery Method Room Air Weight: 86.7 kg Body Mass Index (BMI) 28.3 Intake & Output: Intake and Output for Last 24 Hours 07/30/22 07/31/22 08/01/22 23:59 23:59 23:59 Intake Total 3190.38 / 3190.38 1823 / 1823 50 / 50 Output Total 1950 / 2525 3325 / 3325 Balance 1240.38 / 665.38 -1502 / -1502 50 / 50 Lab / Micro Data Result Diagrams: 08/01/22 06:38 08/01/22 06:38 Labs: Laboratory Results - last 24 hr 07/31/22 12:34: POC Glucose 176 H 07/31/22 16:28: POC Glucose 169 H 07/31/22 21:54: POC Glucose 161 H 08/01/22 06:34: POC Glucose 155 H 08/01/22 06:38: WBC 14.2 H, RBC 3.72 L, Hgb 11.4 L, Hct 34.6 L, MCV 93.0, MCH 30.6, MCHC 32.9, RDW Std Deviation 41.4, RDW Coeff of Emmanuel 12.2, Plt Count 376, MPV 9.7, Immature Gran % (Auto) 2.300 H, Neut % (Auto) 78.1 H, Lymph % (Auto) 10.2 L, [place] % (Auto) 8.2, Eos % (Auto) 0.8, Baso % (Auto) 0.4, Absolute Neuts (auto) 11.1 H, Absolute Lymphs (auto) 1.45, Nucleated RBC % 0 08/01/22 06:38: Sodium 132 L, Potassium 3.6, Chloride 98, Carbon Dioxide 26.0, Anion Gap 8, BUN 21 H, Creatinine 1.26, Estim Creat Clear Calc 61.07, Est GFR (MDRD) Af Amer 75, Est GFR (MDRD) Non-Af 62, BUN/Creatinine Ratio 16.7, Glucose 142 H, Calcium 8.7 Micro: Microbiology 07/30/22 Unknown Wound - Right Foot Gram Stain - Final 07/30/22 Unknown Wound - Right Foot Wound Culture - Preliminary Alpha Hemolytic Streptococcus 07/30/22 Unknown Wound - Right Foot Anaerobic Culture - Preliminary 07/30/22 Unknown Wound - Right Foot Gram Stain - Final 07/30/22 Unknown Wound - Right Foot Wound Culture - Preliminary 07/30/22 Unknown Wound - Right Foot Anaerobic Culture - Preliminary 07/30/22 Unknown Wound - Right Foot Gram Stain - Final 07/30/22 Unknown Wound - Right Foot Wound Culture - Preliminary Gram positive organism 07/30/22 Unknown Wound - Right Foot Anaerobic Culture - Preliminary 07/27/22 15:30 Wound - Right Foot Gram Stain - Final 07/27/22 15:30 Wound - Right Foot Wound Culture - Final Streptococcus mitis Physical Exam Const alert, oriented x3, no apparent distress, average body habitus and healthy appearing General Appearance: cooperative, well kempt and well developed Orientation / Consciousness: awake, oriented to person, oriented to place and oriented to time HEENT normocephalic and moist oral mucous membranes Eyes PERRL, EOMs intact bilaterally and conjunctivae normal Neck supple, no JVD, thyroid normal and no carotid bruits General: trachea midline Resp normal respiratory effort and clear to auscultation bilaterally Auscultation: Negative for rales, rhonchi or wheezes Cardio regular rate, regular rhythm, no murmurs, no rub and no gallops GI normal to inspection, nondistended, normoactive bowel sounds, soft to palpation, non-tender and non-distended Skin Skin Narrative: There is a surgery incision over the medial aspect the patient's right foot extending approximately 7?8 cm in length encompassing the medial aspect of the right great toe, over the margins of the wound there appear to be blackened skin areas, no discharge is noted from the areas. Neuro oriented x3, CN's II-XII intact bilaterally, no focal motor deficits and no sensory deficits noted Sensorium / Orientation: awake and alert Speech: speech normal Psych affect normal Assessment & Plan Assessment/Plan (1) Abscess of right foot: (2) Type 2 diabetes mellitus with diabetic polyneuropathy: PLAN: Plan 1. Type 2 diabetes-new diagnosis for the patient-patient is currently on basal insulin and sliding scale insulin in addition to metformin. I think it is prudent at this time to continue to monitor blood sugars, patient may need his basal insulin dosage increased upon reevaluation tomorrow #2 right great toe/right foot neuropathic ulceration secondary to diabetic neuropathy-patient is being seen by podiatry, he is postop day 2 for debridement of his right great toe and right foot area. It appears that this area may need to be debrided again, podiatry will reevaluate the patient tomorrow #3 right great toe/right foot abscess with staph, strep, and gram-positive karen-patient is currently on vancomycin and Zosyn, ID is following Charges/Coding Visit Charges Inpatient E&M: 93980 Subs Hosp L2
[2022-08-01 12:00] LABS: Bedside Glucose 193 mg/dL (74-106)
[2022-08-01] MEDS: Ondansetron 4 MG/2 ML Vial 8 MG IV (12:22)
[2022-08-01 13:48] LABS: Vancomycin, Random Level 22.4 ug/mL (0.0-15.0)
[2022-08-01 13:56] VITALS: BP 156/79; PULSE 86; RESP 16; TEMP 37; O2SAT 94
[2022-08-01] MEDS: metFORMIN HCl 500 MG Tablet PO (16:24)
[2022-08-01 16:55] LABS: Bedside Glucose 167 mg/dL (74-106)
[2022-08-01] MEDS: Acetaminophen 500 MG Tablet PO (19:48)
[2022-08-01 22:05] VITALS: BP 148/78; PULSE 78; RESP 18; TEMP 36.8; O2SAT 93
[2022-08-01] MEDS: 0.9% Saline Lock 10 ML Syringe IV (22:09)
[2022-08-01] MEDS: Insulin Glargine-YFGN 100 UNIT/ML Pen 20 UNIT SC (22:15)
[2022-08-01 22:36] LABS: Bedside Glucose 151 mg/dL (74-106)
[2022-08-02 03:08] VITALS: BP 162/87; PULSE 80; RESP 18; TEMP 36.6; O2SAT 97
[2022-08-02] MEDS: oxyCODONE 5 MG Tablet 10 MG PO ×2 (03:30→13:28)
[2022-08-02] MEDS: 0.9% Saline Lock 10 ML Syringe IV ×2 (03:30→06:41)
[2022-08-02 06:12] LABS: Vancomycin, Trough Level 12.2 ug/mL (5.0-15.0)
--- NOTE | 2022-08-02 06:26 | PCM.RX.CS ---
Consult Pharmacy has been consulted to manage selected antiobiotic: Vancomycin Type of Consult: Follow-up Suspected Infection: Skin/Soft tissue Prior Doses of Antibiotics Received/Current Regimen: Medications Vancomycin HCl (Vancomycin) 1,000 mg in 200 mls @ 200 mls/hr IV Q12H ANGELLA Discontinued Medications Vancomycin HCl (Vancomycin) 1,000 mg in 200 mls @ 200 mls/hr IV Q8H ANGELLA Last Admin: 08/01/22 07:30 Dose: Infused Labs: Sodium 132 mmol/L (136-145) L 08/01/22 06:38 Potassium 3.6 mmol/L (3.5-5.1) 08/01/22 06:38 Chloride 98 mmol/L (98-107) 08/01/22 06:38 Carbon Dioxide 26.0 mmol/L (21.0-32.0) 08/01/22 06:38 Anion Gap 8 (5-15) 08/01/22 06:38 BUN 21 mg/dL (7-18) H 08/01/22 06:38 Creatinine 1.26 mg/dL (0.70-1.30) 08/01/22 06:38 Est GFR (MDRD) Af Amer 75 mL/min (>60) 08/01/22 06:38 Est GFR (MDRD) Non-Af 62 mL/min (>60) 08/01/22 06:38 BUN/Creatinine Ratio 16.7 RATIO (10-20) 08/01/22 06:38 Glucose 142 mg/dL (74-106) H 08/01/22 06:38 Vancomycin Trough 12.2 ug/mL (5.0-15.0) 08/02/22 05:30 Random Vancomycin 22.4 ug/mL (0.0-15.0) H 08/01/22 13:10 Microbiology: Microbiology 07/30/22 Unknown Wound - Right Foot Gram Stain - Final 07/30/22 Unknown Wound - Right Foot Wound Culture - Preliminary Alpha Hemolytic Streptococcus 07/30/22 Unknown Wound - Right Foot Gram Stain - Final 07/30/22 Unknown Wound - Right Foot Wound Culture - Preliminary Gram positive organism 07/30/22 Unknown Wound - Right Foot Gram Stain - Final 07/30/22 Unknown Wound - Right Foot Wound Culture - Preliminary 07/30/22 Unknown Wound - Right Foot Anaerobic Culture - Preliminary 07/27/22 15:30 Wound - Right Foot Gram Stain - Final 07/27/22 15:30 Wound - Right Foot Wound Culture - Final Streptococcus mitis Weight used for dosin.7 kg Estimated Creatinine Clearance: 68 Goal Trough: 15-20 mcg/mL Pharmacy Plan for Drug Dosing: Re-started the vancomycin dosing at 1000mg q12h, with the random level 08/02/22 @0830 being 12.2. A trough will be taken prior to the 4th dose of the new regimen. Pharmacy Service will continue to monitor and adjust dosing as required. Follow-Up Labs: Trough Vancomycin Labs to be done on [date and time ordered]: 08/03/22 @7820
[2022-08-02 06:35] VITALS: BP 147/79; PULSE 71; RESP 18; TEMP 36.8; O2SAT 93
[2022-08-02] MEDS: Vancomycin IV 1,000 MG/200 ML BAG 200 MG IV (06:41)
[2022-08-02] MEDS: Heparin Injection (Vial) 5,000 UNIT/ML VIAL 5000 UNIT SC (06:48)
[2022-08-02 07:16] LABS: Bedside Glucose 141 mg/dL (74-106)
[2022-08-02] MEDS: Ondansetron 4 MG/2 ML Vial 8 MG IV (07:29)
--- NOTE | 2022-08-02 07:35 | PCM.PN.HOSP ---
Subjective Subjective DOS: 08/02/2022 CC: Nauseous Reports feeling somewhat better overall however has been feeling nauseated, had not had a bowel movement but finally did yesterday and felt slightly better. Going to attempt to eat this morning. Has been attempting to drink fluids. Foot feeling mildly better. No chest pain or shortness of breath. Did have 2 episodes of emesis yesterday but none today. No other complaints this morning Objective Data Objective Data Vital Signs: Vital Signs Temp Pulse Resp BP Pulse Ox O2 Del Method O2 Flow Rate 98.2 F 71 18 147/79 H 93 Room Air 2 08/02/22 06:35 08/02/22 06:35 08/02/22 06:35 08/02/22 06:35 08/02/22 06:35 08/02/22 06:35 07/31/22 00:30 Oxygen Flow Rate (L/min) 2 Oxygen Delivery Method Room Air Weight: 86.7 kg Body Mass Index (BMI) 28.3 Intake & Output: Intake and Output for Last 24 Hours 07/31/22 08/01/22 08/02/22 23:59 23:59 23:59 Intake Total 1823 / 1823 650.25 / 650.25 318.00 / 318.00 Output Total 3325 / 3325 Balance -1502 / -1502 650.25 / 650.25 318.00 / 318.00 Lab / Micro Data Result Diagrams: 08/01/22 06:38 08/01/22 06:38 Labs: Laboratory Results - last 24 hr 08/01/22 06:38: Sodium 132 L, Potassium 3.6, Chloride 98, Carbon Dioxide 26.0, Anion Gap 8, BUN 21 H, Creatinine 1.26, Estim Creat Clear Calc 61.07, Est GFR (MDRD) Af Amer 75, Est GFR (MDRD) Non-Af 62, BUN/Creatinine Ratio 16.7, Glucose 142 H, Calcium 8.7 08/01/22 11:10: POC Glucose 193 H 08/01/22 13:10: Random Vancomycin 22.4 H 08/01/22 16:19: POC Glucose 167 H 08/01/22 22:13: POC Glucose 151 H 08/02/22 05:30: Vancomycin Trough 12.2 08/02/22 06:31: POC Glucose 141 H Micro: Microbiology 07/30/22 Unknown Wound - Right Foot Gram Stain - Final 07/30/22 Unknown Wound - Right Foot Wound Culture - Preliminary Alpha Hemolytic Streptococcus 07/30/22 Unknown Wound - Right Foot Gram Stain - Final 07/30/22 Unknown Wound - Right Foot Wound Culture - Preliminary Gram positive organism 07/30/22 Unknown Wound - Right Foot Gram Stain - Final 07/30/22 Unknown Wound - Right Foot Wound Culture - Preliminary 07/30/22 Unknown Wound - Right Foot Anaerobic Culture - Preliminary 07/27/22 15:30 Wound - Right Foot Gram Stain - Final 07/27/22 15:30 Wound - Right Foot Wound Culture - Final Streptococcus mitis Physical Exam Const alert and no apparent distress Constitutional Narrative: Oriented HEENT normocephalic and head/scalp atraumatic Eyes Eyes Narrative: EOM grossly intact, anicteric Neck supple Resp normal respiratory effort and clear to auscultation bilaterally Cardio regular rate and regular rhythm GI soft to palpation, non-tender and non-distended Extremity Extremity Narrative: No edema appreciated, right foot wrapped, no drain pressure noted on outer dressing Neuro moves all extremities Neuro Narrative: No overt focal deficits appreciated Psych Psych Narrative: Cooperative Assessment & Plan Assessment/Plan (1) Abscess of right foot: (2) Type 2 diabetes mellitus with diabetic polyneuropathy: PLAN: Plan 61-year-old male admitted 07/27 by podiatry after he presented to the outpatient clinic with new onset right foot infection in setting of undiagnosed diabetes which was poorly controlled. He had been evaluated in the ER 07/24 and started on oral antibiotics but worsened despite this and was subsequently hospitalized. #1? Type 2 diabetes-new diagnosis for the patient A1c 07/27 11.1 Currently on metformin 500 mg p.o. twice daily On glargine 20 units nightly, sliding scale insulin Continue Accu-Cheks Continue 5 mg of lisinopril Glucose significantly improved #2 right great toe/right foot neuropathic ulceration secondary to diabetic neuropathy Podiatry primary and will reevaluate today #3 right great toe/right foot abscess with staph, strep, and gram-positive karen-patient is currently on vancomycin and Zosyn, ID is following White blood cell count improving #SG Possibly secondary to dehydration +/- vancomycin with Zosyn Has had somewhat poor p.o. intake and 2 episodes of emesis, will give gentle hydration #Mild hyponatremia If downtrends any further will obtain hyponatremia work-up Query if due to dehydration, gentle hydration today #DVT ppx: On heparin subcu Cristal Lin MD Charges/Coding Visit Charges Inpatient E&M: 04873 Subs Hosp L2
--- NOTE | 2022-08-02 08:38 | WOUNDNOTE ---
wound photo: right foot
--- NOTE | 2022-08-02 08:38 | WOUNDNOTE ---
wound photo: right foot
[2022-08-02 09:24] VITALS: BP 146/71; PULSE 84; RESP 16; TEMP 36.6; O2SAT 95
[2022-08-02] MEDS: Lisinopril 5 MG Tablet PO (09:26)
[2022-08-02] MEDS: metFORMIN HCl 500 MG Tablet PO (09:26)
[2022-08-02] MEDS: Juven (unflavored) Packet 1 PACKET PO (09:26)
[2022-08-02] MEDS: Acetaminophen 500 MG Tablet PO (09:33)
[2022-08-02] MEDS: 0.9% Normal Saline 1,000 ML 100 ML IV (10:41)
[2022-08-02] MEDS: Insulin Lispro 100 UNIT/ML INSULN.PEN SC (11:27)
[2022-08-02 11:50] LABS: Bedside Glucose 243 mg/dL (74-106)
[2022-08-02 12:08] LABS: Absolute Lymphocyte Count 1.09 X10^3/uL (0.83-4.51); Absolute Neutrophil Count 10.9 X10^3/uL (2.0-7.7); Basophil# 0.08 X10^3/uL; Basophil% 0.6 % (0-1); Eosinophil# 0.13 X10^3/uL; Hematocrit 33.2 % (40-54); Hemoglobin 10.8 g/dL (13.0-16.5); Lymphocyte # 1.09 X10^3/ul (0.83-4.51); Lymphocyte % 8.1 % (19-41); Mean Corp Hgb Conc 32.5 g/dL (32-36); Mean Corpuscular Hgb 30.1 pg (27.0-32.0); Mean Corpuscular Volume 92.5 fL (80-94); Mean Platelet Vol. 9.8 fl (6.2-12.0); Monocyte# 1.11 X10^3/uL; Monocyte% 8.3 % (0-10); NRBC Flagged by Analyzer 0 % (0-5); Neutrophil # 10.88 X10^3/uL (2.7-7.7); Platelet Count 404 K/mm3 (150-450); RBC Distribution Width CV 12.1 % (11.6-14.6); RBC Distribution Width SD 41.1 fl (35.1-43.9); Red Blood Count 3.59 M/mm3 (4.6-6.2); White Blood Count 13.4 K/mm3 (4.4-11.0)
--- NOTE | 2022-08-02 12:21 | PN_ITS ---
Subjective Subjective 61-year-old male seen bedside denies pain constitutional's at this time. Patient is 3 days postop status post I&D. No other complaints at this time. Voiding urine and passing gas. Objective Data Objective Data Vital Signs: Vital Signs Temp Pulse Resp BP Pulse Ox O2 Del Method O2 Flow Rate 97.9 F 84 16 146/71 H 95 Room Air 2 08/02/22 09:24 08/02/22 09:24 08/02/22 09:24 08/02/22 09:24 08/02/22 09:24 08/02/22 09:24 07/31/22 00:30 Oxygen Flow Rate (L/min) 2 Oxygen Delivery Method Room Air Weight: 86.7 kg Body Mass Index (BMI) 28.3 Intake & Output: Intake and Output for Last 24 Hours 07/31/22 08/01/22 08/02/22 23:59 23:59 23:59 Intake Total 1823 / 1823 650.25 / 650.25 1357.25 / 1357.25 Output Total 3325 / 3325 600 / 600 Balance -1502 / -1502 650.25 / 650.25 757.25 / 757.25 Lab / Micro Data Result Diagrams: 08/02/22 05:30 08/01/22 06:38 Labs: Laboratory Results - last 24 hr 08/01/22 13:10: Random Vancomycin 22.4 H 08/01/22 16:19: POC Glucose 167 H 08/01/22 22:13: POC Glucose 151 H 08/02/22 05:30: Vancomycin Trough 12.2 08/02/22 05:30: C-React Prot Ext Range 86.50 H 08/02/22 05:30: WBC 13.4 H, RBC 3.59 L, Hgb 10.8 L, Hct 33.2 L, MCV 92.5, MCH 30.1, MCHC 32.5, RDW Std Deviation 41.1, RDW Coeff of Emmanuel 12.1, Plt Count 404, MPV 9.8, Immature Gran % (Auto) 1.000 H, Neut % (Auto) 81.0 H, Lymph % (Auto) 8.1 L, [place] % (Auto) 8.3, Eos % (Auto) 1.0, Baso % (Auto) 0.6, Absolute Neuts (auto) 10.9 H, Absolute Lymphs (auto) 1.09, Nucleated RBC % 0 08/02/22 06:31: POC Glucose 141 H 08/02/22 11:23: POC Glucose 243 H Micro: Microbiology 07/30/22 Unknown Wound - Right Foot Gram Stain - Final 07/30/22 Unknown Wound - Right Foot Wound Culture - Final Streptococcus mitis/ oralis 07/30/22 Unknown Wound - Right Foot Gram Stain - Final 07/30/22 Unknown Wound - Right Foot Wound Culture - Preliminary Gram positive karen 07/30/22 Unknown Wound - Right Foot Gram Stain - Final 07/30/22 Unknown Wound - Right Foot Wound Culture - Preliminary Gram positive organism 07/27/22 15:30 Wound - Right Foot Gram Stain - Final 07/27/22 15:30 Wound - Right Foot Wound Culture - Final Streptococcus mitis Physical Exam Narrative Patient alert oriented person place time. NAD. Vascular: Dorsalis pedis posterior tibial pulses palpable 2 out of 4 to right lower extremity. Digital hair growth noted. Diffuse erythema warmth and edema to the foot which is less today. Neurologic: Light touch protective sensation diminished. Dermatologic: s/p I+D to the right 1st ray with full-thickness wound noted, there is no purulence, no fluctuance, no visible abscess, no crepitus, no maloder, no streaking; improved tissues, with granular tissue noted, but there is some mid 1st metatarsal dry eschar noted at medial aspect, this is continuing to demarcate. Ultimately erythema edema and warmth appears to be resolving. Musculoskeletal: Hallux limitus deformity noted to the right lower extremity. There is some pain to the surgical site, but improved. Assessment & Plan Assessment/Plan (1) Abscess of right foot: (2) Non-pressure chronic ulcer of other part of right foot with necrosis of muscle: (3) Type 2 diabetes mellitus with diabetic polyneuropathy: PLAN: Plan s/p right foot debridement I+D on 07/30/2022. Re-evaluation performed. Reviewed diagnostic stable. The foot is overall improving. We will continue to monitor foot to assess healing. Patient will require weekly wound care and home health care dressing changes. ID on board recommend discharge on doxycycline and Augmentin. Daily dressing changes - betadine, 4x4 gauze, kerlix and tevin dressing. Patient can heel weight-bear in cam walking boot for transfer purposes. Diabetes and other medical problems - Appreciate hospitalist assistance.
--- NOTE | 2022-08-02 12:23 | DS.PCM_ITS ---
Providers Date of Admission: 07/27/22 Primary Care Physician: Ana Primary Care Phys Consultations 07/27/22 16:47 Consult: Hospitalist Routine Consulting Provider: Uli Malik Reason for Consult: medical management EMERGENT Consult: No MD Notified: Yes Date Notified: 07/27/22 Time Notified: 17:26 Method of Notification: Text Consult: Infectious Disease Routine Consulting Provider: Micheal Mendoza Reason for Consult: dm foot infection EMERGENT Consult: No Notified: Yes Date Notified: 07/28/22 Time Notified: 02:35 Method of Notification: Answering Service 07/28/22 15:25 Consult: Onc/Wound/event operations manager Routine Comment: Reason for Consult:: right foot Reason For Visit: RIGHT DIABETIC FOOT INFECTION Diagnosis Discharge Diagnosis (1) Abscess of right foot: Status: Acute Code(s): L02.611 - Cutaneous abscess of right foot (2) Non-pressure chronic ulcer of other part of right foot with necrosis of m uscle: Status: Chronic Code(s): L97.513 - Non-pressure chronic ulcer of other part of right foot with necrosis of muscle (3) Type 2 diabetes mellitus with diabetic polyneuropathy: Status: Acute Code(s): E11.42 - Type 2 diabetes mellitus with diabetic polyneuropathy Plan s/p right foot debridement I+D on 07/30/2022. Re-evaluation performed. Reviewed diagnostic stable. The foot is overall improving. We will continue to monitor foot to assess healing. Patient will require weekly wound care and home health care dressing changes. ID on board recommend discharge on doxycycline and Augmentin. Daily dressing changes - betadine, 4x4 gauze, kerlix and tevin dressing. Patient can heel weight-bear in cam walking boot for transfer purposes. Diabetes and other medical problems - Appreciate hospitalist assistance. Medications at Discharge Home Medications ondansetron 4 mg disintegrating tablet 4 mg PO Q8H PRN nausea and vomiting #14 tabs 07/20/22 cephalexin 500 mg capsule 500 mg PO Q6 #40 caps 07/23/22 sulfamethoxazole 400 mg-trimethoprim 80 mg tablet (Bactrim) 1 tab PO BID cellulitis 7 days #14 tabs 07/23/22 Hospital Course Operations - (right foot incisoin and drainage of abscess) Summary of Care Provided Minutes Spent on Discharge: 30 Hospital Course: Patient admitted with right foot abscess abscess and new onset diabetes. Patient underwent MRI confirmed abscess adjacent to extensor hallucis longus tendon and flexor hallucis longus tendon. This was debrided in the operating room on 07/30/2022. Clinically patient has improved since that time. Patient has been followed by infectious disease who at current recommends discharge on doxycycline and Augmentin, they are pending a final evaluation prior to DC. Patient will follow up in my office in 1 week continue heel weightbearing, home health care dressing changes were ordered. Physical Exam Narrative Neurovascular status unchanged previous visit. Improved erythema edema to the right first metatarsophalangeal joint. There is noted to be some dry stable eschar to incisional site along the medial aspect of the first metatarsal head. This is likely secondary to devascularization during intraoperative debridement. This will likely require additional debridement as an outpatient. Intact vessel closure noted. Weight / BMI Weight Weight: 86.7 kg Body Mass Index (BMI) 28.3 ABG / Lab / Microbiology Data Result Diagrams: 08/02/22 05:30 08/01/22 06:38 Laboratory: Laboratory Results - last 24 hr 08/01/22 13:10: Random Vancomycin 22.4 H 08/01/22 16:19: POC Glucose 167 H 08/01/22 22:13: POC Glucose 151 H 08/02/22 05:30: Vancomycin Trough 12.2 08/02/22 05:30: C-React Prot Ext Range 86.50 H 08/02/22 05:30: WBC 13.4 H, RBC 3.59 L, Hgb 10.8 L, Hct 33.2 L, MCV 92.5, MCH 30.1, MCHC 32.5, RDW Std Deviation 41.1, RDW Coeff of Emmanuel 12.1, Plt Count 404, MPV 9.8, Immature Gran % (Auto) 1.000 H, Neut % (Auto) 81.0 H, Lymph % (Auto) 8.1 L, [place] % (Auto) 8.3, Eos % (Auto) 1.0, Baso % (Auto) 0.6, Absolute Neuts (auto) 10.9 H, Absolute Lymphs (auto) 1.09, Nucleated RBC % 0 08/02/22 06:31: POC Glucose 141 H 08/02/22 11:23: POC Glucose 243 H Microbiology: Microbiology 07/30/22 Unknown Wound - Right Foot Gram Stain - Final 07/30/22 Unknown Wound - Right Foot Wound Culture - Final Streptococcus mitis/ oralis 07/30/22 Unknown Wound - Right Foot Gram Stain - Final 07/30/22 Unknown Wound - Right Foot Wound Culture - Preliminary Gram positive karen 07/30/22 Unknown Wound - Right Foot Gram Stain - Final 07/30/22 Unknown Wound - Right Foot Wound Culture - Preliminary Gram positive organism 07/27/22 15:30 Wound - Right Foot Gram Stain - Final 07/27/22 15:30 Wound - Right Foot Wound Culture - Final Streptococcus mitis Meaningful Use Info Meaningful Use Diagnoses (Choose all that apply): None applicable Discharge Plan Admission Admit Date/Time: 07/27/22 16:20 Attending Provider: Leonardo Cole Primary Care Provider: Care Physician,No Primary Consulting Providers: Julisa Sousa ; Cristal Lin Instructions Patient Instructions: Diabetes Foot Infections Tx, Diabetes: Keeping Feet Healthy, Diabetes Inspect Feet Additional Instructions / Restrictions: follow up 1 week, dr. cole Discharge Orders/Prescriptions Prescriptions: No Action ondansetron 4 mg tablet,disintegrating 4 mg PO Q8H PRN (Reason: nausea and vomiting) Qty: 14 0RF cephalexin 500 mg capsule 500 mg PO Q6 Qty: 40 0RF sulfamethoxazole-trimethoprim [Bactrim] 400-80 mg tablet 1 tab PO BID 7 Days Qty: 14 0RF Referrals / Follow Up: Isidra Harvey MD [Med Staff - Active Staff] - 08/11/22 9:00 am (Appt is @ 9 AM. Please arrive @ 8:30 AM to complete paperwork. ) Leonardo Cole DPM [Med Staff - Active Staff] - Care Physician,No Primary [Primary Care Provider] - Disposition Disposition (needs filled in before D/C Order can be placed): Home Health Service
--- NOTE | 2022-08-02 12:52 | CASEMGMT ---
Addendum entered by Destiny Durbni 08/02/22 14:54: Received tc from Tommie at [facility] who contacted pt and was told that pt does not have working toilet nor refrigerator. HAILEY BLUM in to pt room, pt states he did not know about the toilet. He states his refrigerator has not worked well since they bought it. States that certain areas freeze, but if his insulin needs refrigerated they can put it in the crisper drawer and it will be fine. Tommie planned to update [facility]. Added [employer] to referral. Addendum entered by Destiny Durbin 08/02/22 13:34: Received tc from [facility] to verify if pt needs reg adult crutches or tall. Confirmed with therapist pt needs adult and Darlene aware. Original Note: HAILEY BLUM notified by therapy that pt is checking to see if he has a FWW or crutches at home. Whichever he does not have, he will need. HAILEY BLUM in to pt room, pt states he has a FWW. Provided pt with a verbal local in network list of DME providers, pt chose [facility]. Referral sent to [facility] via [facility] at this time for crutches. Discussed that [facility] will be in contact with him to start services. Pt denies any further homegoing needs. Updated Amara at [facility] via that pt will dc today.
[2022-08-02 13:15] LABS: Anion Gap 9 (5-15); BUN 24 mg/dL (7-18); BUN/Creat Ratio 15.6 RATIO (10-20); Calcium,Total 8.5 mg/dL (8.5-10.1); Chloride 102 mmol/L (98-107); Creatinine, Serum 1.54 mg/dL (0.70-1.30); EST Glomerular Filtration Rate 49 mL/min (>60); Est Glom Filt Rate - Afr Amer 60 mL/min (>60); Estimated Creatinine Clearance 49.97 ml/min; Glucose 150 mg/dL (74-106); Potassium 3.5 mmol/L (3.5-5.1); Sodium Level 136 mmol/L (136-145)
[2022-08-02 13:35] VITALS: BP 160/77; PULSE 88; RESP 16; TEMP 36.9; O2SAT 96
[2022-08-02 17:25] LABS: Bedside Glucose 149 mg/dL (74-106)
== END 2022-08-02 18:30 | disposition home health service (06) | DRG 623 ==
PROVIDERS: Internal Medicine; Internal Medicine Infectious Disease; Podiatrist; Admitting Provider Podiatrist; Visit Provider Podiatrist
DX: E11.621 Type 2 diabetes mellitus with foot ulcer (principal); L02.611 Cutaneous abscess of right foot; E87.1 Hypo-osmolality and hyponatremia; N17.9 Acute kidney failure, unspecified; E11.42 Type 2 diabetes mellitus with diabetic polyneuropathy; L97.513 Non-pressure chronic ulcer of other part of right foot with necrosis of muscle; Z87.891 Personal history of nicotine dependence
CPT/HCPCS: 36415; 70030; 73718; 80048; 80053; 80061; 80202; 81001; 82962; 83036; 85025; 85027; 85652; 86140; 87015; 87070; 87075; 87077; 87102; 87116; 87176; 87186; 87205; 87206; 93005; 97162; 97802; J7030; J7040; J7050; J7120; A4216; J2405

== ENCOUNTER → 2022-08-11 | Outpatient (CLI) | payer OTHER, SELFPAY ==
[2022-08-11 12:32] LABS: Absolute Lymphocyte Count 1.59 X10^3/uL (0.83-4.51); Absolute Neutrophil Count 6.8 X10^3/uL (2.0-7.7); Basophil# 0.08 X10^3/uL; Basophil% 0.8 % (0-1); Eosinophil# 0.38 X10^3/uL; Eosinophils% 3.9 % (0-5); Hematocrit 40.5 % (40-54); Hemoglobin 12.8 g/dL (13.0-16.5); Lymphocyte # 1.59 X10^3/ul (0.83-4.51); Lymphocyte % 16.2 % (19-41); Mean Corp Hgb Conc 31.6 g/dL (32-36); Mean Corpuscular Hgb 29.4 pg (27.0-32.0); Mean Corpuscular Volume 93.1 fL (80-94); Mean Platelet Vol. 9.3 fl (6.2-12.0); Monocyte# 0.83 X10^3/uL; Monocyte% 8.5 % (0-10); NRBC Flagged by Analyzer 0 % (0-5); Neutrophil # 6.83 X10^3/uL (2.7-7.7); Neutrophil % 69.7 % (47-70); Platelet Count 456 K/mm3 (150-450); RBC Distribution Width CV 12.3 % (11.6-14.6); RBC Distribution Width SD 42.4 fl (35.1-43.9); Red Blood Count 4.35 M/mm3 (4.6-6.2); White Blood Count 9.8 K/mm3 (4.4-11.0)
[2022-08-11 12:52] LABS: Anion Gap 5 (5-15); BUN 18 mg/dL (7-18); BUN/Creat Ratio 11.8 RATIO (10-20); Calcium,Total 8.9 mg/dL (8.5-10.1); Chloride 104 mmol/L (98-107); Creatinine, Serum 1.53 mg/dL (0.70-1.30); EST Glomerular Filtration Rate 50 mL/min (>60); Est Glom Filt Rate - Afr Amer 60 mL/min (>60); Glucose 107 mg/dL (74-106); Potassium 4.5 mmol/L (3.5-5.1); Sodium Level 138 mmol/L (136-145)
[2022-08-11 13:18] LABS: Microalbumin:Creatinine Ratio 200.9 mg/g CRE (<30 mg/g CRE)
== END | disposition home or self-care (01) ==
LOC: BIMLAB 10:14
PROVIDERS: PCP Internal Medicine; Referring Provider Internal Medicine; Visit Provider Internal Medicine
DX: E11.42 Type 2 diabetes mellitus with diabetic polyneuropathy (principal)
CPT/HCPCS: 36415; 80048; 82043; 82570; 85025

== ENCOUNTER → 2022-11-16 | Outpatient (CLI) | payer OTHER, SELFPAY ==
[2022-11-16 16:16] LABS: Anion Gap 8 (5-15); BUN 21 mg/dL (7-18); BUN/Creat Ratio 18.4 RATIO (10-20); Calcium,Total 9.7 mg/dL (8.5-10.1); Chloride 106 mmol/L (98-107); Creatinine, Serum 1.14 mg/dL (0.70-1.30); EST Glomerular Filtration Rate 70 mL/min (>60); Est Glom Filt Rate - Afr Amer 84 mL/min (>60); Glucose 245 mg/dL (74-106); Potassium 4.6 mmol/L (3.5-5.1); Sodium Level 139 mmol/L (136-145)
== END | disposition home or self-care (01) ==
LOC: BIMLAB 12:00
PROVIDERS: PCP Internal Medicine; Referring Provider Internal Medicine; Visit Provider Internal Medicine
DX: R79.89 Other specified abnormal findings of blood chemistry (principal); R03.0 Elevated blood-pressure reading, without diagnosis of hypertension
CPT/HCPCS: 36415; 80048

== ENCOUNTER → 2024-08-09 | Outpatient (REF) | payer MEDICAID, SELFPAY ==
[2024-08-09 09:11] LABS: Anion Gap 4 (5-15); BUN 41 mg/dL (7-18); BUN/Creat Ratio 58.8 RATIO (10-20); Calcium,Total 9.2 mg/dL (8.5-10.1); Chloride 102 mmol/L (98-107); EST Glomerular Filtration Rate 122 mL/min (>60); Est Glom Filt Rate - Afr Amer 148 mL/min (>60); Glucose 153 mg/dL (74-106); Potassium 3.6 mmol/L (3.5-5.1); Sodium Level 138 mmol/L (136-145)
== END | disposition home or self-care (01) ==
LOC: OLS.SANC 05:00
PROVIDERS: PCP Internal Medicine
DX: E11.9 Type 2 diabetes mellitus without complications (principal); I10 Essential (primary) hypertension; I62.9 Nontraumatic intracranial hemorrhage, unspecified
CPT/HCPCS: 36415; 80048

== ENCOUNTER → 2024-08-13 | Outpatient (REF) | payer MEDICAID, SELFPAY ==
[2024-08-13 08:47] LABS: Absolute Lymphocyte Count 1.19 X10^3/uL (0.83-4.51); Absolute Neutrophil Count 5.7 X10^3/uL (2.0-7.7); Basophil# 0.05 X10^3/uL; Basophil% 0.6 % (0-1); Eosinophil# 0.19 X10^3/uL; Eosinophils% 2.4 % (0-5); Hematocrit 23.5 % (40-54); Hemoglobin 7.2 g/dL (13.0-16.5); Lymphocyte # 1.19 X10^3/ul (0.83-4.51); Lymphocyte % 15.3 % (19-41); Mean Corp Hgb Conc 30.6 g/dL (32-36); Mean Corpuscular Hgb 31.3 pg (27.0-32.0); Mean Corpuscular Volume 102.2 fL (80-94); Mean Platelet Vol. 10.4 fl (6.2-12.0); Monocyte# 0.45 X10^3/uL; Monocyte% 5.8 % (0-10); NRBC Flagged by Analyzer 0 % (0-5); Neutrophil # 5.74 X10^3/uL (2.7-7.7); Platelet Count 361 K/mm3 (150-450); RBC Distribution Width CV 15.9 % (11.6-14.6); White Blood Count 7.8 K/mm3 (4.4-11.0)
[2024-08-13 08:57] LABS: AST(SGOT) 13 U/L (15-37); Alanine Aminotransfer ALT/SGPT 14 U/L (16-61); Albumin, Serum 1.6 g/dL (3.2-5.0); Alkaline Phosphatase 140 U/L (45-117); CPK Total, Creatine Kinase 52 U/L (39-308); EST Glomerular Filtration Rate 146 mL/min (>60); Est Glom Filt Rate - Afr Amer 176 mL/min (>60); Globulin 5.6 g/dL (2.2-4.2); Protein, Total 7.2 g/dL (6.4-8.2)
== END | disposition home or self-care (01) ==
LOC: OLS.SANC 05:00
PROVIDERS: PCP Internal Medicine
DX: E11.9 Type 2 diabetes mellitus without complications (principal); I10 Essential (primary) hypertension
CPT/HCPCS: 36415; 80076; 82550; 82565; 85025

== ENCOUNTER → 2024-09-10 | Outpatient (REF) | payer MEDICAID, SELFPAY ==
[2024-09-10 08:41] LABS: Absolute Lymphocyte Count 1.12 X10^3/uL (0.83-4.51); Absolute Neutrophil Count 7.1 X10^3/uL (2.0-7.7); Basophil# 0.02 X10^3/uL; Basophil% 0.2 % (0-1); Eosinophil# 0.26 X10^3/uL; Eosinophils% 2.9 % (0-5); Hematocrit 24.3 % (40-54); Hemoglobin 7.4 g/dL (13.0-16.5); Lymphocyte # 1.12 X10^3/ul (0.83-4.51); Lymphocyte % 12.3 % (19-41); Mean Corp Hgb Conc 30.5 g/dL (32-36); Mean Corpuscular Hgb 30.5 pg (27.0-32.0); Monocyte# 0.39 X10^3/uL; Monocyte% 4.3 % (0-10); NRBC Flagged by Analyzer 0 % (0-5); Neutrophil # 7.07 X10^3/uL (2.7-7.7); Neutrophil % 77.6 % (47-70); Platelet Count 361 K/mm3 (150-450); RBC Distribution Width CV 16.3 % (11.6-14.6); Red Blood Count 2.43 M/mm3 (4.6-6.2); White Blood Count 9.1 K/mm3 (4.4-11.0)
[2024-09-10 09:01] LABS: AST(SGOT) 17 U/L (15-37); Alanine Aminotransfer ALT/SGPT 16 U/L (16-61); Albumin, Serum 1.5 g/dL (3.2-5.0); Alkaline Phosphatase 213 U/L (45-117); Bilirubin, Direct 0.06 mg/dL (0.00-0.30); CPK Total, Creatine Kinase 58 U/L (39-308); Creatinine, Serum 0.62 mg/dL (0.70-1.30); EST Glomerular Filtration Rate 139 mL/min (>60); Erythrocyte Sedimentation Rate 35 mm/hr (0-20); Est Glom Filt Rate - Afr Amer 168 mL/min (>60); Globulin 5.8 g/dL (2.2-4.2); Protein, Total 7.3 g/dL (6.4-8.2)
== END | disposition home or self-care (01) ==
LOC: OLS.SANC 05:00
PROVIDERS: PCP Internal Medicine; Visit Provider Internal Medicine
DX: Z79.899 Other long term (current) drug therapy (principal)
CPT/HCPCS: 36415; 80076; 82550; 82565; 85025; 85652; 86140

== ENCOUNTER → 2024-09-17 | Outpatient (REF) | payer MEDICAID, SELFPAY ==
[2024-09-17 09:02] LABS: Absolute Lymphocyte Count 0.95 X10^3/uL (0.83-4.51); Absolute Neutrophil Count 3.9 X10^3/uL (2.0-7.7); Basophil# 0.02 X10^3/uL; Basophil% 0.3 % (0-1); Eosinophil# 0.17 X10^3/uL; Eosinophils% 2.9 % (0-5); Hematocrit 22.5 % (40-54); Hemoglobin 6.8 g/dL (13.0-16.5); Lymphocyte # 0.95 X10^3/ul (0.83-4.51); Mean Corp Hgb Conc 30.2 g/dL (32-36); Mean Corpuscular Hgb 30.1 pg (27.0-32.0); Mean Corpuscular Volume 99.6 fL (80-94); Mean Platelet Vol. 10.5 fl (6.2-12.0); Monocyte# 0.78 X10^3/uL; Monocyte% 13.1 % (0-10); NRBC Flagged by Analyzer 0 % (0-5); Neutrophil # 3.93 X10^3/uL (2.7-7.7); Neutrophil % 66.2 % (47-70); Platelet Count 279 K/mm3 (150-450); RBC Distribution Width CV 16.5 % (11.6-14.6); RBC Distribution Width SD 60.2 fl (35.1-43.9); Red Blood Count 2.26 M/mm3 (4.6-6.2); White Blood Count 5.9 K/mm3 (4.4-11.0)
[2024-09-17 09:17] LABS: AST(SGOT) 25 U/L (15-37); Alanine Aminotransfer ALT/SGPT 23 U/L (16-61); Albumin, Serum 1.4 g/dL (3.2-5.0); Alkaline Phosphatase 226 U/L (45-117); Bilirubin, Direct 0.08 mg/dL (0.00-0.30); CPK Total, Creatine Kinase 30 U/L (39-308); Creatinine, Serum 0.56 mg/dL (0.70-1.30); EST Glomerular Filtration Rate 157 mL/min (>60); Est Glom Filt Rate - Afr Amer 190 mL/min (>60); Globulin 5.5 g/dL (2.2-4.2); Protein, Total 6.9 g/dL (6.4-8.2)
[2024-09-17 09:36] LABS: Erythrocyte Sedimentation Rate 32 mm/hr (0-20)
== END | disposition home or self-care (01) ==
LOC: OLS.SANC 05:00
PROVIDERS: PCP Internal Medicine
DX: E11.9 Type 2 diabetes mellitus without complications (principal); I10 Essential (primary) hypertension; I62.9 Nontraumatic intracranial hemorrhage, unspecified
CPT/HCPCS: 36415; 80076; 82550; 82565; 85025; 85652; 86140